=== PATIENT | male | born 1930 | race Caucasian/White ===

== ENCOUNTER 2017-11-12 21:02 | Inpatient (IN) ==
[2017-11-12] MEDS ORDERED: ONDANSETRON 4 MG/2 ML INJECTION IVP ONE (21:40)
[2017-11-12] MEDS ORDERED: FentaNYL 100 MCG/2 ML INJECTION IVP ONE (21:40)
--- NOTE | 2017-11-12 22:07 | Emergency Department Report ---
Nausea/Vomiting/Diarrhea HPI - General Chief complaint: Nausea/Vomiting/Diarrhea Stated complaint: vom, leg pain Time Seen by Provider: 11/12/17 21:20 - History of Present Illness HPI Narrative: 87-year-old male with history of Parkinson's which is rapidly progressing, presents with nausea vomiting diarrhea. Also has right lower leg pain which is quite severe. Rates the pain as 8 out of 10. Has noticed increasing swelling in right leg with worsening pain and increased warmth. Home health nurse told him to stop wearing the compression stockings as they were causing the problem. Plan is to increase Parkinson's medication, but primary care provider is out of town and the order has not been sent through yet. He's had no fever, but has had chills. No dysuria by history. Up until the last week or so, he was walking with a cane especially during the day when he was not overly tired. His symptoms are significant for progress fairly dramatically in the last week or 2. He now requires a walker or assist,. - Related Data Home Medications Medication Instructions Recorded Confirmed Mapap Extra Strength 500 mg tablet 1,000 mg PO TID PRN tab 10/25/16 11/12/17 Triderm (Triamcinolone acetonide 1 applicatio TOP BID PRN 10/25/16 11/12/17 0.1 %) topical cream brinzolamide 1 %-brimonidine 0.2 % 1 drop EACH EYE BID ml 10/25/16 11/12/17 eye drops,suspension cholecalciferol (vitamin D3) 2,000 2,000 unit PO DAILY cap 10/25/16 11/12/17 unit capsule multivitamin tablet 1 tab PO QAM 10/25/16 11/12/17 travoprost (benzalkonium) 0.004 % See Label Instructions OP .COMPLEX 10/25/16 eye drops nitroglycerin 0.2 mg/hr 1 patch TD DAILY 90 Days #90 each 10/16/17 11/12/17 transdermal 24 hour patch Carbidopa/Levodopa [Sinemet Cr 1 tab PO BID 11/12/17 11/12/17 50-200 Tablet] Aspirin 1 tab PO DAILY 11/14/17 11/14/17 Calcium Carbonate 2 tab PO DAILY 11/14/17 11/14/17 Furosemide [Lasix 20 mg Tab] 1 tab PO BID 11/14/17 11/14/17 [place]-3/Dha/Epa/Fish Oil [Fish Oil 2 cap PO BID 11/14/17 11/14/17 1,000 mg Softgel] PEG 3350 17gm PACKET [Miralax] 17 gm PO QAM 11/14/17 11/14/17 Previous Rx's Medication Instructions Recorded Nitrostat (nitroglycerin) 0.4 mg 0.4 mg SL Q5M PRN #7 tab 02/03/17 sublingual tablet Toprol XL metoprolol succinate ER 25 mg PO BID #180 tab 07/09/17 25 mg tablet,extended release 24 hr Crestor (rosuvastatin) 5 mg tablet 5 mg PO EVERY OTHER DAY - HS #45 09/01/17 tab Acetaminophen Supp [Tylenol] 650 mg UT Q5H PRN suppositor 11/21/17 LORazepam [Ativan] 0.5 mg PO Q4H PRN #20 tab 11/21/17 Morphine Sulfate Oral Liq [Roxanol 10 - 20 mg PO Q2H PRN #10 syringe 11/21/17 Oral Liq] Allergies Allergy/AdvReac Type Severity Reaction Status Date / Time No Known Drug Allergies Allergy Unknown Verified 10/22/17 17:17 Review of Systems All systems: reviewed and negative except as stated PFSH Patient Stated Medical History Parkinson's Disease Yes Congestive Heart Failure Yes Hypertension Yes Hx Incontinence Yes Clinic Medical History HTN (hypertension) (Chronic Medical) Hyperlipidemia (Chronic Medical) BPH (benign prostatic hyperplasia) (Chronic Medical) CAD (coronary artery disease) (Chronic Medical) Chronic venous insufficiency (Chronic Medical) Parkinson disease (Chronic Medical) Osteoarthritis of knees, bilateral (Chronic Medical) Tubular adenoma of colon (Acute Medical) 1999 Glaucoma (Chronic Medical) CHF (congestive heart failure) (Chronic Medical) OAB (overactive bladder) (Chronic Medical) Surgical History: Heart cath with stent to RCA 2001. Colonoscopy (normal) 2006. Bilat. cataract removal 05/2009. TURP 03/2010 Family History: Family History Father , at age 84 Parkinsons disease Mother , at age 90 Unknown cause of morbidity or mortality Sister , at age 75 Stroke Brother Heart attack Unknown cause of morbidity or mortality S/P CABG x 3 - Social History Smoking status: Never smoker Alcohol intake: never Alcohol intake frequency: does not drink Household members: spouse, other Current occupational status: retired Physical Exam - Limitations Limitations: physical limitation - General General appearance: alert - Normal Exams: Head:: Normocephalic without trauma Chest/Respirations:: Clear all gasca, with good airflow, and symmetry bilaterally Cardiovascular:: Regular rate and rhythm, without murmur or gallop, Pulses 2+ all extremities, capillary refill, <2 seconds all extremities - Abdominal Exam Abdominal exam: Present: soft, distention, tenderness (diffuse), hyperactive bowel sounds. Absent: guarding, rebound, rigidity Course Vital Signs Temperature 97.5 F 11/12/17 21:15 Pulse Rate 96 11/12/17 21:15 Respiratory Rate 24 11/12/17 21:15 Blood Pressure 140/83 H 11/12/17 21:15 Pulse Oximetry 97 11/12/17 21:15 Temperature 97.5 F 11/12/17 21:15 Pulse Rate 96 11/12/17 21:15 Respiratory Rate 24 11/12/17 21:15 Blood Pressure 140/83 H 11/12/17 21:15 Pulse Oximetry 97 11/12/17 21:15 Nausea/Vomiting/Diarrhea - [facility] Narrative Medical decision making narrative: Peripheral IV with 500 ML normal saline bolus. CBC, CMP, UA, blood culture and urine culture ordered. Concern with right lower leg and probability of cellulitis. White count was not elevated, however patient has obvious cellulitic changes of leg with difficulty moving elevated d-dimer and CT angio chest showed no pulmonary emboli. CT abdomen and pelvis also shows no acute process. Labs are reviewed. Hospitalist is consulted and patient will be admitted with cellulitis/dehydration. Patient certainly has worsening weakness and will need inpatient care. - Differential Diagnosis Likely: gastroenteritis - Medical Records Attestation: I reviewed the patient's medical records. - Lab Data Attestation: I reviewed the patient's lab results. Result diagrams: 11/20/17 04:25 11/20/17 04:25 - Radiology Data Attestation: I reviewed the patient's radiology results. Disposition Clinical Impression: Cellulitis [place] [facility] [place] Condition: Stable Time of Disposition: 16:28 - Seen By: physician
[2017-11-12] MEDS: SALINE FLUSH 10ml SYRINGE IVF PRN (22:18)
[2017-11-12] MEDS ORDERED: IODIXANOL 320mg/ml 100ml INJECTION IV ONE (22:42)
[2017-11-12] MEDS ORDERED: SALINE FLUSH 10ml SYRINGE ONE (22:42)
[2017-11-12] MEDS ORDERED: HYDROMORPHONE 2 MG/ML INJECTION IVP ONE (22:52)
[2017-11-12] MEDS ORDERED: IODIXANOL 320mg/ml 50ml INJECTION IV ONE (23:18)
[2017-11-12] MEDS ORDERED: CEFTRIAXONE (ER USE ONLY) 1 GM in NS 100 ML IV ONE (23:28)
[2017-11-13] MEDS ORDERED: NITROGLYCERIN 0.4 MG SUBLINGUAL TABLET SL PRN (01:07)
[2017-11-13] MEDS ORDERED: FentaNYL 100 MCG/2 ML INJECTION IVP PRN (01:11)
[2017-11-13] MEDS ORDERED: PROCHLORPERAZINE 10 MG/2 ML INJECTION IVP ONE (01:11)
[2017-11-13] MEDS ORDERED: SENNA + DOCUSATE TABLET PO PRN (01:59)
[2017-11-13] MEDS ORDERED: ONDANSETRON 4 MG/2 ML INJECTION IVP PRN (01:59)
[2017-11-13] MEDS ORDERED: VANCOMYCIN - PHARMACY CONSULT MC ONE (01:59)
[2017-11-13] MEDS: NS 1,000 ML IV SCH ×6 (02:00→23:47)
--- NOTE | 2017-11-13 03:11 | History & Physical Report ---
History of Present Illness Date: 11/13/17 Chief complaint: leg pain HPI: The pt is a 87 yo male with rapidly progressive Parkinson's disease whose main caregiver, his has been gone for the past 2-3 weeks due to a broken leg, whose family brought him to the ER due to a painful, red , swollen leg. Over the past 4 week he has had progressive weakness using a walker which has not needed in the past. He did have his big toe nail removed about 4 weeks ago and placed on abx for a week after. Profuse vomiting starting today Review of Systems ROS unobtainable: due to mental status Past Medical History Medical History: Medical History HTN (hypertension) (Chronic) Hyperlipidemia (Chronic) BPH (benign prostatic hyperplasia) (Chronic) CAD (coronary artery disease) (Chronic) Chronic venous insufficiency (Chronic) Parkinson disease (Chronic) Osteoarthritis of knees, bilateral (Chronic) Tubular adenoma of colon (Acute) 1999 Glaucoma (Chronic) CHF (congestive heart failure) (Chronic) OAB (overactive bladder) (Chronic) Surgical History: Heart cath with stent to RCA 2001. Colonoscopy (normal) 2006. Bilat. cataract removal 05/2009. TURP 03/2010 Family History: Family History Father , at age 84 Parkinsons disease Mother , at age 90 Unknown cause of morbidity or mortality Sister , at age 75 Stroke Brother Heart attack Unknown cause of morbidity or mortality S/P CABG x 3 Family History: Unable to Obtain - Social History Smoking status: Never smoker Medications Home Medications Medication Instructions Recorded Confirmed Type Aspirin 325 mg PO DAILY #0 03/12/10 11/12/17 History Calcium Carbonate 2 tab PO DAILY #0 03/12/10 11/12/17 History Fish Oil (omega-3 fatty acids-fish 2 cap PO BID #0 cap 10/25/16 11/12/17 History oil) 300 mg-1,000 mg capsule Mapap Extra Strength 500 mg tablet 1,000 mg PO TID PRN tab 10/25/16 11/12/17 History Triderm (Triamcinolone acetonide 1 applicatio TOP BID PRN 10/25/16 11/12/17 History 0.1 %) topical cream brinzolamide 1 %-brimonidine 0.2 % 1 drop EACH EYE BID ml 10/25/16 11/12/17 History eye drops,suspension cholecalciferol (vitamin D3) 2,000 2,000 unit PO DAILY cap 10/25/16 11/12/17 History unit capsule multivitamin tablet 1 tab PO QAM 10/25/16 11/12/17 History polyethylene glycol 3350 17 17 g PO QAM each 10/25/16 11/12/17 History gram/dose oral powder travoprost (benzalkonium) 0.004 % See Label Instructions OP .COMPLEX 10/25/16 History eye drops Lasix (Furosemide) 20 mg tablet 20 mg PO BID #180 tab 02/03/17 11/12/17 Rx Nitrostat (nitroglycerin) 0.4 mg 0.4 mg SL Q5M PRN #7 tab 02/03/17 11/12/17 Rx sublingual tablet Toprol XL metoprolol succinate ER 25 mg PO BID #180 tab 07/09/17 11/12/17 Rx 25 mg tablet,extended release 24 hr Crestor (rosuvastatin) 5 mg tablet 5 mg PO EVERY OTHER DAY - HS #45 09/01/1703/22 Rx tab nitroglycerin 0.2 mg/hr 1 patch TD DAILY 90 Days #90 each 10/16/17 11/12/17 History transdermal 24 hour patch Carbidopa/Levodopa [Sinemet Cr 1 tab PO BID 11/12/17 11/12/17 History 50-200 Tablet] Allergies Allergy/AdvReac Type Severity Reaction Status Date / Time No Known Drug Allergies Allergy Unknown Verified 10/22/17 17:17 Exam Vital Signs: Temperature 99.6 F 11/13/17 02:15 Pulse Rate 120 H 11/13/17 02:15 Respiratory Rate 28 H 11/13/17 02:15 Blood Pressure 146/71 H 11/13/17 02:15 Pulse Oximetry 92 11/13/17 03:03 Height/Weight/BMI: Height 1.75 m Weight 111.4 kg - Constitutional Present: obtunded Comments: sleeping, nonverbal. - Routine Respiratory Exam Present: CTA bilaterally - Routine Cardiovascular Exam Present: RRR, no murmur - Routine Abdominal Exam Present: soft, normoactive bowel sounds, non distended, non tender - Routine Extremities Exam Present: edema Comments: Right leg with signficant swelling and tenderness to exam, redness ascending up proximal to the knee posteriorly, clear demarkated line, Results - Labs CBC & Chem 7: 11/12/17 22:15 11/12/17 22:15 Assessment and Plan (1) Cellulitis and abscess of foot Current visit: Yes Status: Acute (2) HTN (hypertension) Current visit: No Status: Chronic (3) CAD (coronary artery disease) Current visit: No Status: Chronic (4) Parkinson disease Current visit: No Status: Chronic (5) CHF (congestive heart failure) Current visit: No Status: Chronic Assessment and Plan: will start the pt on vanco, elevation of the leg, CT chest neg for PE, US leg neg for DVT, CT abd due to vomiting negative except for GB stones, high risk for delirium , restart home meds. DVT Prophylaxis: Lovenox GI Prophylaxis: Protonix Resuscitation Status: Do Not Resuscitate - Physician Narrative Narrative: Date: 11/13/17 Time: 0308 Hospital Course Summary Disclaimer: The visit summary below is not to be considered part of the above Progress Note.
[2017-11-13] MEDS ORDERED: ACETAMINOPHEN 650 MG SUPPOSITORY PR PRN (05:38)
--- NOTE | 2017-11-13 07:25 | Ultrasound Report ---
Indication: edema PROCEDURE: US venous doppler LE RT: Encounter: Initial Comparison: None Technique: Color Doppler duplex and grayscale sonographic imaging of the right lower extremity was performed. Findings: There is no evidence for acute deep venous thrombosis in the right thigh. Specifically, serial graded compression was performed from the inguinal ligament to the popliteal bifurcation, on the right thigh, demonstrating appropriate compressibility of the deep venous system. In addition, color and pulsed Doppler demonstrate appropriate spontaneous flow, variation with respiration, and augmentation with calf compression. At the ankle, normal flow is identified in the posterior tibial veins; these vessels are also normal in caliber. Impression: No evidence of acute DVT in the right lower limb. There is a preliminary report by [employer]. .
--- NOTE | 2017-11-13 07:36 | CT Scan Report ---
Indication: n/v PROCEDURE: CT abdomen pelvis w con: Encounter: Initial Comparison: None Technique: Axial CT images were performed through the abdomen and pelvis after the administration of intravenous contrast. Coronal and sagittal two-dimensional reformats. Automated Exposure Control and Iterative Reconstruction dose reducing techniques were utilized. Contrast: Visipaque 320 100 mL Findings: Atelectasis in the lower lobes. Mild motion artifact. Liver is unremarkable. Small gallstones within the mildly distended gallbladder. The spleen, pancreas and adrenal glands are grossly normal. Right kidney is normal. Nonobstructing lower pole left renal stones. No abdominal lymphadenopathy. Bladder is grossly normal. Moderate stool in the rectum. There is herniation of the proximal sigmoid colon partially into a left inguinal hernia without evidence of acute colonic obstruction. Small bowel is normal in caliber. Bone windows show degenerative change and scoliosis in the spine. Enlarged right inguinal lymph nodes measuring up to 1.6 cm in short axis could be reactive. Impression: No acute disease process seen. 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 There is a preliminary report by [employer]. .
--- NOTE | 2017-11-13 07:43 | XRay Report ---
Indication: n/v PROCEDURE: XR abdomen 1V: Encounter: Initial Comparison: CT abdomen and pelvis from the same date Findings: The visualized lung bases are clear. There is no free air on the upright view. The bowel gas pattern is nonobstructive and nonspecific. The pelvis is excluded from the [id number]. Moderate stool in the visualized colon. Degenerative change and scoliosis in the spine. Impression: Nonobstructive nonspecific bowel gas pattern. .
--- NOTE | 2017-11-13 07:45 | XRay Report ---
Indication: N/V PROCEDURE: XR chest 1V: Encounter: Initial Comparison: None FINDINGS: The lungs are clear. There is no abnormal airspace opacity, pleural effusion or pneumothorax identified. The heart size, pulmonary vasculature and mediastinum are within normal limits. IMPRESSION: No acute cardiopulmonary abnormality. .
--- NOTE | 2017-11-13 08:12 | CT Scan Report ---
Indication: elevated d-dimer PROCEDURE: CT angio pulm emboli: Encounter: Initial Comparison: None Technique: Axial CT pulmonary angiographic phase images were performed through the chest after the administration of intravenous contrast. Coronal and Sagittal MIP reconstructed images were created and reviewed. Automated Exposure Control and Iterative Reconstruction dose reducing techniques were utilized. Contrast: Visipaque 320 99 mL Findings: Pulmonary arteries: Contrast bolus is suboptimal and borderline nondiagnostic. No large or central pulmonary embolus. Other findings: No pneumonia, pleural effusion or pneumothorax. Scarring or atelectasis in the left lower lobe. The remaining lung gasca are clear. Central airways are patent. No axillary or mediastinal adenopathy. Heart is mildly enlarged. No pericardial effusion. Impression: Limited exam with no large or central pulmonary embolus. There is a preliminary report by [employer]. .
[2017-11-13] MEDS: ENOXAPARIN 40 MG/0.4 ML INJECTION SQ SCH (08:13)
[2017-11-13] MEDS: HYDROCODONE/APAP 5mg/325mg TABLET PO PRN ×2 (09:43→21:08)
[2017-11-13] MEDS: NITROGLYCERIN 0.2 MG/HR PATCH TD SCH (09:44)
[2017-11-13] MEDS: ASPIRIN 325 MG TABLET PO SCH (09:45)
--- NOTE | 2017-11-13 11:28 | Pharmacy Consult-Antibiotics ---
Pharmacy Consult-Vancomycin - Laboratory Information WBC 2.8 T/MM3 (4.5-11.0) L 11/12/17 22:15 BUN 27.0 MG/DL (9-20) H 11/12/17 22:15 Creatinine 1.4 mg/dL (0.8-1.5) 11/12/17 22:15 - Consult Information Vancomycin consult noted by Dr Echols for Mr Riggs, who is 87 years old and weighs 111kg. He has a cellulitis w/abscess.His serum creatinine is 1.4 mg/dl. He received a vancomycin 1500mg dose this morning at 0230. Will begin vancomycin 1250mg IV q18h this afternoon. Will continue to monitor. Thank you.
[2017-11-13] MEDS ORDERED: PNEUMOCOCCAL 23 VACCINE 0.5ml INJECTION IM ONE (13:55)
--- NOTE | 2017-11-13 16:21 | Wound Care Progress Note ---
Wound Center Progress Note: Pt seen for wound consultation r/t buttocks, bilateral lower legs, and toes. Pt sleeping in bed, FLACC-0. Daughter at bedside. Pt was admitted with a painful red swollen R leg and vomiting. Bilateral lower legs/feet have 2+ to 3+ edema. R leg has increased erythema and warmth/cellulitis. Area of erythema has been marked on leg, at this time area of redness has receded. Bilateral lower legs have small intact serous blisters to anterior aspect, no active weeping, hemosiderin staining. Daughter states her father had his R great toe nail trimmed 1 month ago. The nail proceeded to get infected and had purulent drainage. Pt's PCP placed him on antibiotics for a week. At this time the great toe nail wound is closed, unable to express drainage. Periwound: blanchable erythema. Daughter reports she has just started to apply Vics to toe nails to help with toe nail fungus. 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 Daughter states he has had these wounds for over 1 year. Pt is incontinent at this time. Pt is sitting/sleeping in his recliner most of the time. Wound bed is denuded, scant active bleeding from L medial buttock. Periwound: blanchable erythema. Wound tx plan: To bilateral medial buttocks: Apply barrier cream to denuded areas, cover with Mepilex, change q 3 days and PRN, off load with regular repositioning. To bilateral lower legs: Apply double layer xeroform to blisters , cover with ABD pads. Apply stretch gauze from toes to knees to provide light compression, elevate legs PRN. Change q 3 days. To R great toe: continue to monitor, if opens up apply Aquacel Ag, cover with Mepilex, change q 3 days.
--- NOTE | 2017-11-13 18:34 | History & Physical Report ---
History of Present Illness Date: 11/13/17 Chief complaint: Nause/vomiting, leg pain HPI: Mr Riggs is an 87 y/o male who lives independently presents to [facility] ED secondary to N/V and increasing leg pain. Has been having chronic swelling of legs due to veinous insufficiency-typically wear compression stocking. About 1 month ago had right great toenail trimmed and toenail inadvertently removed. Significant bleeding at that time and has been having redness of toe and leg since. Treated with antibiotics. hospitalized recently. While in visiting her, he lost balance going to bathroom (when to use door jam for assistance as he does at home, but jam in hospital slick and not supportive) did fall with trauma to back. Family notes steady decline at home for the past 1-2 weeks (His normal day would be to get up for breakfast, do devotions, and then sleep in chair until lunch when he would get up for lunch, then going back to sleep in chair) - prior was using a cane for assistance but now is requiring 2 person assistance to get up. finally able to return home on 11/12. Family member has made arrangements for for PT to help patient. Developed n/v (diarrhea reported by ED staff). Also having increasing leg pain, right leg more than left. Both legs very swollen, but right more so and much more painful and warm to touch. ED visit ensued. D-Dimer elevated. WBC decreased at 2.8. No evidence for DVT or PE. HR elevated. With concern for sepsis syndrome due to RLE cellulitis, patient placed in inpatient admission at [facility]. Anticipated length of stay thought to be greater than 2 midnights. Review of Systems All systems PM: 10-point ROS was reviewed, no additional remarkable complaints except - Constitutional Constitutional: Present: chills, fever(s) - Cardiovascular Cardiovascular: Present: edema - Respiratory Respiratory: Absent: cough, hemoptysis, dyspnea on exertion, pain on inspiration , chest congestion - Gastrointestinal Gastrointestinal: Present: nausea, vomiting - Neurological Neurological: Present: abnormal gait, weakness (Generalized) Past Medical History Medical History: Medical History HTN (hypertension) (Chronic) Hyperlipidemia (Chronic) BPH (benign prostatic hyperplasia) (Chronic) CAD (coronary artery disease) (Chronic) Chronic venous insufficiency (Chronic) Parkinson disease (Chronic) Osteoarthritis of knees, bilateral (Chronic) Tubular adenoma of colon (Acute) 2000 Glaucoma (Chronic) CHF (congestive heart failure) (Chronic) OAB (overactive bladder) (Chronic) Surgical History: Heart cath with stent to RCA 2001. Colonoscopy (normal) 2006. Bilat. cataract removal 05/2009. TURP 03/2010 Family History: Family History Father , at age 84 Parkinsons disease Mother , at age 90 Unknown cause of morbidity or mortality Sister , at age 75 Stroke Brother Heart attack Unknown cause of morbidity or mortality S/P CABG x 3 Family History: As Above - Social History Smoking status: Never smoker Alcohol intake frequency: does not drink Housing: house Household members: spouse Current occupational status: retired Social history: Dr Lee PCP Medications Home Medications Medication Instructions Recorded Confirmed Type Aspirin 325 mg PO DAILY #0 03/12/10 11/12/17 History Calcium Carbonate 2 tab PO DAILY #0 03/12/10 11/12/17 History Fish Oil (omega-3 fatty acids-fish 2 cap PO BID #0 cap 10/25/16 11/12/17 History oil) 300 mg-1,000 mg capsule Mapap Extra Strength 500 mg tablet 1,000 mg PO TID PRN tab 10/25/16 11/12/17 History Triderm (Triamcinolone acetonide 1 applicatio TOP BID PRN 10/25/16 11/12/17 History 0.1 %) topical cream brinzolamide 1 %-brimonidine 0.2 % 1 drop EACH EYE BID ml 10/25/16 11/12/17 History eye drops,suspension cholecalciferol (vitamin D3) 2,000 2,000 unit PO DAILY cap 10/25/16 11/12/17 History unit capsule multivitamin tablet 1 tab PO QAM 10/25/16 11/12/17 History polyethylene glycol 3350 17 17 g PO QAM each 10/25/16 11/12/17 History gram/dose oral powder travoprost (benzalkonium) 0.004 % See Label Instructions OP .COMPLEX 10/25/16 History eye drops Lasix (Furosemide) 20 mg tablet 20 mg PO BID #180 tab 02/03/17 11/12/17 Rx Nitrostat (nitroglycerin) 0.4 mg 0.4 mg SL Q5M PRN #7 tab 02/03/17 11/12/17 Rx sublingual tablet Toprol XL metoprolol succinate ER 25 mg PO BID #180 tab 07/09/17 11/12/17 Rx 25 mg tablet,extended release 24 hr Crestor (rosuvastatin) 5 mg tablet 5 mg PO EVERY OTHER DAY - HS #45 09/01/1703/22 Rx tab nitroglycerin 0.2 mg/hr 1 patch TD DAILY 90 Days #90 each 10/16/17 11/12/17 History transdermal 24 hour patch Carbidopa/Levodopa [Sinemet Cr 1 tab PO BID 11/12/17 11/12/17 History 50-200 Tablet] Allergies Allergy/AdvReac Type Severity Reaction Status Date / Time No Known Drug Allergies Allergy Unknown Verified 10/22/17 17:17 Exam Vital Signs: Temperature 97.8 F 11/13/17 16:00 Pulse Rate 86 11/13/17 16:00 Respiratory Rate 20 11/13/17 16:00 Blood Pressure 95/55 11/13/17 16:00 Pulse Oximetry 95 11/13/17 16:00 Height/Weight/BMI: Height 1.75 m Weight 111.3 kg - Constitutional Present: well nourished, well developed, obese, other (Appear tired and weak) - Routine HEENT Exam Head: Present: normocephalic, atraumatic Eye: Present: EOMI ENT: Present: mucous membranes moist - Routine Neck Exam Present: supple, trachea midline - Routine Respiratory Exam Present: decreased breath sounds, wheezes (Scattered ). Absent: respiratory distress - Routine Cardiovascular Exam Present: RRR, no murmur - Routine Abdominal Exam Present: soft, non distended, non tender. Absent: normoactive bowel sounds ( decreaed) - Routine Extremities Exam Present: edema (+4 BLE), pulses intact. Absent: cyanosis, clubbing - Routine Skin Exam Present: erythema (RLE from foot to level of knee), warm (Right LE much more warm than left) - Routine Neurological Exam Present: vision grossly intact, tremors (Parkinsonian). Absent: hearing grossly intact (ALGAACIQ), normal speech (Speech slow) - Routine Psychiatric Exam Present: unable to assess (Appear tire and somnolent.) Results - Labs CBC & Chem 7: 11/13/17 19:20 11/13/17 19:20 Assessment and Plan (1) Sepsis Current visit: Yes Status: Acute (2) Cellulitis and abscess of foot Current visit: Yes Status: Acute (3) Parkinson disease Current visit: No Status: Chronic (4) CHF (congestive heart failure) Current visit: No Status: Chronic (5) CAD (coronary artery disease) Current visit: No Status: Chronic (6) HTN (hypertension) Current visit: No Status: Chronic Assessment and Plan: Assessment Septic shock secondary to cellulitis Manifestations: Tachycardia, Leukopenia, Lactate 4.1 Cellulitis of RLE Leukopenia Nausea and vomiting Functional decline at home Back pain with recent fall Parkinson's disease CAD CHF by history HTN HDL Chronic LE venous insufficiency OA OAB Gallstones Glaucoma Obesity with BMI 36.2 Plan Inpatient admission to [facility] for treatment of Sepsis syndrome secondary to Cellulitis of RLE. Vancomycin initiated per protocol. IVF of NS at 100cc/hr initially - will decrease to 75cc/hr. Lactate obtained and elevated at 4.1. 30mg/kg IVF bolus ordered (3500mg) Zofran prn nausea. Wound consult for evaluation of chronic wounds to legs. Elevate legs as much as able to help decrease edema. PT/OT/Speech consult secondary to Parkinson's and functional decline. Daughter concerned that Parkinson's worsening. Wonders about increasing his medications. Will increase Sinemet to QID and consult Dr Srinivasan for Parkinson's evaluation. Hold on furosemide until sure BP will remain stable - can continue BB and NTG patch. Will need to monitor blood counts due to leukopenia and cellulitis. Monitor BMP secondary to IVF and contrast. Lovenox for DVT prevention. Discussed code status with family - DNR would be preferred. Care to return to Dr Lee at time of discharge from [facility]. DVT Prophylaxis: Lovenox Resuscitation Status: Do Not Resuscitate - Time spent with patient Time with patient PN: 70 minutes - Physician Narrative Physician: José Manuel Fall MD Narrative: Date: 11/13/17 Time: 1818 Sepsis Assessment - Evaluation SIRS Criteria: WBC < 4,000 Septic Shock: Lactate > or equal to 4 mg/dL - Focused Exam-within 6 hours of IVF Bolus Date exam was performed: 11/13/17 Time exam was performed: 22:00 Respiratory exam: Present: decreased breath sounds. Absent: wheezes, crackles Cardiovascular exam: Present: RRR. Absent: murmur Peripheral pulse strength: Normal Peripheral pulse location: Radial Skin Temperature: Warm Skin Color: Normal for Patient Hospital Course Summary Disclaimer: The visit summary below is not to be considered part of the above Progress Note. Hospital Course: 11/13/17 Inpatient admission to [facility] for treatment of Sepsis syndrome secondary to Cellulitis of RLE. Vancomycin initiated per protocol. IVF of NS at 100cc/hr initially - will decrease to 75cc/hr. Lactate obtained and elevated at 4.1. 30mg/kg IVF bolus ordered (3500mg). Zofran prn nausea. Wound consult for evaluation of chronic wounds to legs. Elevate legs as much as able to help decrease edema. PT/OT/Speech consult secondary to Parkinson's and functional decline. Daughter concerned that Parkinson's worsening. Wonders about increasing his medications. Will increase Sinemet to QID and consult Dr Srinivasan for Parkinson's evaluation. Hold on furosemide until sure BP will remain stable - can continue BB and NTG patch. Will need to monitor blood counts due to leukopenia and cellulitis. Monitor BMP secondary to IVF and contrast. Lovenox for DVT prevention. Discussed code status with family - DNR would be preferred. Care to return to Dr Lee at time of discharge from [facility].
[2017-11-13] MEDS: BRINZOLAMIDE 1% EACH EYE SCH (21:09)
[2017-11-13] MEDS: BRIMONIDINE 0.2% EYE DROPS 5ml EACH EYE SCH (21:09)
[2017-11-13] MEDS: EYE EACH EYE SCH (21:09)
[2017-11-13] MEDS: NITROGLYCERIN PATCH REMOVAL TD SCH (21:17)
[2017-11-13] MEDS: CEFTRIAXONE 1 G in NS 100 ML IV SCH (21:37)
--- NOTE | 2017-11-13 22:03 | Sepsis Event Note ---
Sepsis Assessment - Evaluation SIRS Criteria: WBC < 4,000 Septic Shock: Lactate > or equal to 4 mg/dL - Focused Exam-within 6 hours of IVF Bolus Date exam was performed: 11/13/17 Time exam was performed: 22:02 Respiratory exam: Present: decreased breath sounds Cardiovascular exam: Present: RRR, no murmur Capillary Refill: < 2Seconds Peripheral pulse strength: Normal Peripheral pulse location: Radial Skin Temperature: Warm Skin Color: Normal for Patient
[2017-11-14] MEDS: NS 1,000 ML IV SCH (02:22)
[2017-11-14] MEDS: HYDROCODONE/APAP 5mg/325mg TABLET PO PRN (03:35)
--- NOTE | 2017-11-14 08:32 | XRay Report ---
Indication: F/U PROCEDURE: XR chest 1V: Encounter: Initial Comparison: CT chest dated November 12, 2017 Findings: Stable mild interstitial prominence with slight increase in right infrahilar airspace opacity. No pneumothorax or effusion. Heart size and mediastinal contours are stable. Pulmonary vascularity is stable. Impression: Subtle right infrahilar airspace disease may represent atelectasis. .
[2017-11-14] MEDS: ASPIRIN 325 MG TABLET PO SCH (08:47)
[2017-11-14] MEDS: ENOXAPARIN 40 MG/0.4 ML INJECTION SQ SCH (08:48)
[2017-11-14] MEDS: NITROGLYCERIN 0.2 MG/HR PATCH TD SCH (08:48)
[2017-11-14] MEDS: EYE EACH EYE SCH ×2 (08:49→21:00)
[2017-11-14] MEDS: BRIMONIDINE 0.2% EYE DROPS 5ml EACH EYE SCH ×2 (08:49→21:00)
[2017-11-14] MEDS: BRINZOLAMIDE 1% EACH EYE SCH ×2 (08:49→21:00)
[2017-11-14] MEDS: LACTOBACILLUS (15B cfu) CAPSULE PO SCH ×2 (11:14→16:47)
[2017-11-14] MEDS ORDERED: FUROSEMIDE 40 MG/4 ML INJECTION IVP ONE (11:18)
[2017-11-14] MEDS ORDERED: BISACODYL 10 MG SUPPOSITORY RECTALLY PRN (11:56)
[2017-11-14] MEDS ORDERED: POLYETHYL GLYCOL 3350 17gm PACKET PO PRN (11:57)
--- NOTE | 2017-11-14 12:03 | Progress Note ---
- Date 11/14/17 Subjective: F/U: Septic shock secondary to cellulitis, Cellulitis of RLE Some restlessness and agitation overnight night. Breathing shallow, some wheezes. Oral intake very slow but taking small amounts at a time. Did have stool. Pt somnolent, but will awaken and speak short phrases. Daughter at bedside. Objective Vital signs: Temperature 96.6 F L 11/14/17 07:57 Pulse Rate 87 11/14/17 07:57 Respiratory Rate 24 11/14/17 10:03 Blood Pressure 139/71 11/14/17 07:57 Pulse Oximetry 97 11/14/17 07:57 Height/Weight/BMI: Height 1.75 m Weight 115 kg - Constitutional Present: moderate distress, well nourished, well developed, obese, somnolent - Routine HEENT Exam Head: Present: normocephalic, atraumatic Eye: Present: EOMI, PERRL - Routine Respiratory Exam Present: decreased breath sounds (Shallow breathing), wheezes (Faint bilateral) - Routine Cardiovascular Exam Present: RRR, no murmur - Routine Abdominal Exam Present: soft, non tender, distended. Absent: normoactive bowel sounds ( Decreased) - Routine Extremities Exam Present: edema (+4 BLE), pulses intact. Absent: cyanosis, clubbing - Routine Musculoskeletal Exam Musculoskeletal: Present: no clubbing or cyanosis - Routine Skin Exam Present: erythema (Slight decrease to RLE), warm. Absent: dry (Moist) - Routine Neurological Exam Present: altered mental status (Somnolent). Absent: hearing grossly intact ( Hard of Hearing) - Routine Psychiatric Exam Comments: Somnolent Results - Labs CBC & Chem 7: 11/14/17 02:01 11/14/17 02:01 Assessment and Plan (1) Sepsis Current visit: Yes Status: Acute (2) Cellulitis and abscess of foot Current visit: Yes Status: Acute (3) Parkinson disease Current visit: No Status: Chronic (4) CHF (congestive heart failure) Current visit: No Status: Chronic (5) CAD (coronary artery disease) Current visit: No Status: Chronic (6) HTN (hypertension) Current visit: No Status: Chronic Assessment and Plan: Assessment Septic shock secondary to cellulitis Manifestations: Tachycardia, Leukopenia, Lactate 4.1 Cellulitis of RLE Leukopenia Nausea and vomiting Functional decline at home Back pain with recent fall Parkinson's disease CAD CHF by history HTN HDL Chronic LE venous insufficiency OA OAB Gallstones Glaucoma Obesity with BMI 36.2 Plan BP improved with boluses. Creatinine stable. Weight up. CXR without increase edema. Will hold on IVF and give furosemide 40mg x1 - monitor response of HR and BP. ECHO to assess cardiac function. Full liquid diet as able - oral drive decreased. Continue Vanco and Rocephin for skin coverage. Still overall very ill. Monitor lab-recheck CMP, Mg, and CBC in am. Case discussed with patient's daughter. Time spent with patient care 25 minutes. DVT Prophylaxis: Lovenox Resuscitation Status: Do Not Resuscitate - Time spent with patient Time with patient PN: 25 minutes - Physician Narrative Physician: José Manuel Fall MD Narrative: Date: 11/14/17 Time: 1158 Hospital Course Summary Disclaimer: The visit summary below is not to be considered part of the above Progress Note. Hospital Course: 11/13/17 Inpatient admission to [facility] for treatment of Sepsis syndrome secondary to Cellulitis of RLE. Vancomycin initiated per protocol. Rocephin given in ED, will contine. IVF of NS at 100cc/hr initially - will decrease to 75cc/hr. Lactate obtained and elevated at 4.1. 30mg/kg IVF bolus ordered (3500mg). Zofran prn nausea. Wound consult for evaluation of chronic wounds to legs. Elevate legs as much as able to help decrease edema. PT/OT/Speech consult secondary to Parkinson's and functional decline. Daughter concerned that Parkinson's worsening. Wonders about increasing his medications. Will increase Sinemet to QID and consult Dr Srinivasan for Parkinson's evaluation. Hold on furosemide until sure BP will remain stable - can continue BB and NTG patch. Will need to monitor blood counts due to leukopenia and cellulitis. Monitor BMP secondary to IVF and contrast. Lovenox for DVT prevention. Discussed code status with family - DNR would be preferred. Care to return to Dr Lee at time of discharge from [facility]. 11/14/17 BP improved with boluses. Creatinine stable. Weight up. CXR without increase edema. Will hold on IVF and give furosemide 40mg x1 - monitor response of HR and BP. ECHO to assess cardiac function. Full liquid diet as able - oral drive decreased. Continue Vanco and Rocephin for skin coverage. Still overall very ill.
--- NOTE | 2017-11-14 15:32 | Consultation ---
DATE OF CONSULTATION 11/14/[address] Fall PATIENT'S CHIEF COMPLAINT Fatigue and Parkinson's disease. HISTORY OF PRESENT ILLNESS Patient is an 87-year-old male with history of Parkinson's disease for the past 10-15 years. The patient presented to [facility] after a fall. The patient was found to have severe swelling in his legs associated with redness and possible cellulitis problem. He was also found to be very short of breath with wheezing problem. The patient's overall medical condition has been steadily improving with antibiotic and Lasix. He continues to have severe rigidity and bradykinesia associated with his Parkinson's disease. He is also having severe lower back pain and leg stiffness due to swelling and lack of mobility. The patient has been taking Sinemet CR 50/200 mg p.o. b.i.d. for his Parkinson's. This has worked for him for many years. His dosage was increased this morning to three times a day. The benefit has not been determined yet. PHYSICAL EXAMINATION On physical examination, the patient was awake, alert, oriented to self and situation. He is very frail and fatigued. He has had difficulty keeping his eyes open. The pupils are round, reactive and equal. Extraocular muscles were limited in all directions. Speech was very slow and soft. He had no facial weakness or numbness. His motor examination in the upper extremities was 4/5 limited mainly by fatigue and rigidity. In the lower extremities it was 3 to 4- /5. Sensory examination was limited for light touch and pinprick in the lower extremities from the knees down. This is exacerbated by the swelling of the legs and the infection problem. Deep tendon reflexes were 2-/4. Coordination for [id number] were slow bilaterally. The patient has increased cogwheeling rigidity in the upper extremities. ASSESSMENT 1. Progressing Parkinson's disease exacerbated by the recent worsening of his medical condition due to leg cellulitis, pulmonary edema and possible sepsis. PLAN 1. Continue Sinemet CR 50/200 mg p.o. t.i.d. for Parkinson's disease. 2. Optimize treatment for cellulitis, leg edema and pulmonary problem. 3. Provide physical therapy with passive motion exercises to help mobility when patient is more stable medically. 4. Consider assessing lower back problems if the patient becomes more stable and he is able to stand on his legs. [facility]
--- NOTE | 2017-11-14 15:53 | Echocardiogram ---
DATE OF PROCEDURE November 14, 2017 REFERRING PHYSICIAN José Manuel Fall MD This is a two-dimensional echo with spectral Doppler, color-flow and M-mode. It was obtained in a patient with congestive heart failure. Left atrial dimension is normal. Left ventricle end-diastolic dimension is normal. Left ventricle wall thickness is at the upper limits of normal. LV systolic function is normal with ejection fraction of about 55%. Right atrium is normal. Right ventricle is normal. Aortic root dimension is normal. Mitral valve is morphologically normal with trace of mitral regurgitation. Aortic valve is a trileaflet structure with no stenosis. Mild aortic insufficiency is present. Tricuspid valve shows mild tricuspid regurgitation with normal estimated pulmonary artery systolic pressure of 26. Pulmonary valve shows no pulmonary insufficiency. There is no pericardial effusion. IMPRESSION 1. Normal LV systolic function with ejection fraction of 55%. 2. Trace of mitral regurgitation. 3. Mild aortic insufficiency. 4. Mild tricuspid regurgitation with normal estimated pulmonary artery systolic pressure of 26. MTDD
[2017-11-14] MEDS ORDERED: FUROSEMIDE 20 MG/2 ML INJECTION IVP ONE (18:44)
[2017-11-14] MEDS: CEFTRIAXONE 1 G in NS 100 ML IV SCH (19:06)
[2017-11-14] MEDS: NITROGLYCERIN PATCH REMOVAL TD SCH (21:02)
--- NOTE | 2017-11-15 08:24 | Pharmacy Consult-Antibiotics ---
Pharmacy Consult-Vancomycin - Laboratory Information WBC 10.6 T/MM3 (4.5-11.0) 11/15/17 01:49 BUN 23.0 MG/DL (9-20) H 11/15/17 04:23 Creatinine 0.9 mg/dL (0.8-1.5) 11/15/17 04:23 Procalcitonin 16.70 NG/ML H* 11/15/17 04:23 Vancomycin Trough 17.10 ug/mL (15-20) 11/15/17 01:49 - Consult Information VANCOMYCIN CONSULT: Dx: CELLULITIS Current Renal Fx: SCr = 0.9 mg/dl. Vancomycin 1250 mg IV q18hrs Vanco trough = 17.10 Will continue with Vancomycin 1250 mg IV q18hrs. Will continue to monitor and adjust regimen to maintain therapeutic levels. Thank you. Erendira English, PharmD
[2017-11-15] MEDS: ASPIRIN 325 MG TABLET PO SCH (09:56)
[2017-11-15] MEDS: ENOXAPARIN 40 MG/0.4 ML INJECTION SQ SCH (09:57)
[2017-11-15] MEDS: NITROGLYCERIN 0.2 MG/HR PATCH TD SCH (09:57)
[2017-11-15] MEDS: LACTOBACILLUS (15B cfu) CAPSULE PO SCH ×3 (09:58→17:59)
[2017-11-15] MEDS: BRINZOLAMIDE 1% EACH EYE SCH ×2 (09:58→21:01)
[2017-11-15] MEDS: EYE EACH EYE SCH ×2 (09:58→21:01)
[2017-11-15] MEDS: BRIMONIDINE 0.2% EYE DROPS 5ml EACH EYE SCH ×2 (09:58→21:01)
--- NOTE | 2017-11-15 16:56 | Progress Note ---
- Date 11/15/17 Subjective: Mr Riggs is seen today in follow up. Weeping throughout entire examination, he will briefly open his eyes, however, does not participate in conversation. Patients at daughter, Stephany, is at the bedside who provides all of the information and history. She feels that today. His spirits are overall decreased as he is angry and has "given up". Overall, his mentation and confusion has improved however daughter notes over the last 24 hours he has been blaming his children for keeping him in the hospital. He is currently on 1 liter of oxygen by nasal cannula. He is noted when attempting to take oral pills that he does have dysphagia with coughing. Continued lower extremity edema with erythema to the right leg from the groin all the way down to his toes. Noted weight is up. Objective Vital signs: Temperature 98.7 F 11/15/17 15:27 Pulse Rate 80 11/15/17 15:27 Respiratory Rate 16 11/15/17 15:27 Blood Pressure 142/76 H 11/15/17 15:27 Pulse Oximetry 94 11/15/17 15:27 Height/Weight/BMI: Height 1.75 m Weight 113.4 kg - Constitutional Present: mild distress, well nourished, well developed - Routine HEENT Exam Eye: Present: EOMI ENT: Present: mucous membranes moist, dentition normal - Routine Respiratory Exam Present: wheezes, diminished air movement - Routine Cardiovascular Exam Present: RRR, S1, S2. Absent: murmur - Routine Abdominal Exam Present: soft, normoactive bowel sounds, non distended. Absent: tenderness - Routine Extremities Exam Present: edema Comments: RLE erythema with 3+ edema - Routine Skin Exam Present: intact, dry, warm - Routine Neurological Exam Present: altered mental status - Routine Lymphatic Exam Lymphatic: Absent: adenopathy - Routine Psychiatric Exam Present: cooperative Results - Labs CBC & Chem 7: 11/15/17 01:49 11/15/17 04:23 Microbiology Results: Microbiology 11/14/17 11:16 Sputum, Expectorated Gram Stain - Final 11/14/17 11:16 Sputum, Expectorated Sputum Culture - Preliminary Early growth Assessment and Plan Assessment and Plan: Assessment Septic shock secondary to cellulitis Manifestations: Tachycardia, Leukopenia, Lactate 4.1 Cellulitis of RLE Leukopenia Nausea and vomiting Functional decline at home Back pain with recent fall Parkinson's disease CAD CHF by history HTN HDL Chronic LE venous insufficiency OA OAB Gallstones Glaucoma Obesity with BMI 36.2 Plan Weight continues to increase as well as edema. Will start Lasix 20 mg IV now and continue BID Monitor electrolytes and renal function carefully Continue Vanco and Rocephin for skin coverage. Sepsis markers and bandemia continue to improve Electrolytes and renal function good Weaned down to 1 liter of oxygen Encourage work with Speech- concern for dysphagia Daughter verbalized anxiety and concern for discharge plan as she was his caregiver at home She is interested if IRU -vs- SNU once medically stable Case discussed with patient's daughter. Time spent with patient care at bedside 35 minutes. 11/15/2017-8:15 PM-I examined the patient independently. I reviewed this chart, the patient history, and the [employer]'s/PA's documented findings as above. We discussed and formulated the assessment and plan as above with the additions below.-Dr. Mosley The patient was seen this evening in his room accompanied by his , daughter , son and a couple of other family members. The patient continues to have some encephalopathy. His appetite is poor today. His family thinks he is not swallowing as well today as yesterday. He is not able to answer many of my questions today. Family states he just wants to leave the hospital. His daughter states that the erythema in his right leg is much better. She states the edema is much better in the left leg especially and mildly better in the right leg. On exam he is drowsy but arousable. He answers a few questions but then does not respond to other questions. Chest is clear to auscultation. Cardiovascular reveals a regular rate and rhythm. Abdomen is soft, moderately distended, with positive bowel sounds. states his abdomen has been distended at home, but she is not sure if it's been distended this much. Bilateral upper extremities are without edema. Left lower extremity reveals +1 edema with some blisters on the anterior shins which have ruptured and are covered in a dressing. Right lower extremity reveals 2-3+ edema. He has erythema from the upper medial thigh and extending down into the entire calf and foot. He has some blisters on the right medial foot which are new. He has some ruptured blisters on the anterior hoffmann which are covered in a dressing. The area of erythema does not extend beyond the marked areas of erythema. His daughter states that the erythema is much customs compliance analyst pink than it was before. On review of lab, white count is 10.6 with 14% bands, down from 46% bands yesterday. White count yesterday was 8.5. He's been afebrile for 2 days now. Pro -calcitonin is 16.7. No previous pro-calcitonin. Impression and plan Septic Shock secondary to cellulitis-resolved Cellulitis right lower extremity-continue vancomycin and Rocephin currently day 4. Recheck pro-calcitonin tomorrow. Check CPK tomorrow. Check CBC with differential tomorrow. Regarding by lower extremity edema-agree with Lasix 20 mg IV twice a day, may need to increase dosage. Monitor renal function and electrolytes. Continue Sinemet for Parkinson's disease. Dose was increased. Check KUB regarding abdominal distention Check chest x-ray regarding hypoxia, hypoxia is improving Re: Encephalopathy-we'll continue to try to improve his cellulitis and pain control Family would like to consider IRU. Will place an IRU screen on Friday. Continue PT and OT - Physician Narrative Narrative: Date: 11/15/17 Time: 1652 Hospital Course Summary Disclaimer: The visit summary below is not to be considered part of the above Progress Note. Hospital Course: 11/13/17 Inpatient admission to [facility] [place] for treatment of Sepsis syndrome secondary to Cellulitis of RLE. Vancomycin initiated per protocol. Rocephin given in ED, will contine. IVF of NS at 100cc/hr initially - will decrease to 75cc/hr. Lactate obtained and elevated at 4.1. 30mg/kg IVF bolus ordered (3500mg). Zofran prn nausea. Wound consult for evaluation of chronic wounds to legs. Elevate legs as much as able to help decrease edema. PT/OT/Speech consult secondary to Parkinson's and functional decline. Daughter concerned that Parkinson's worsening. Wonders about increasing his medications. Will increase Sinemet to QID and consult Dr Srinivasan for Parkinson's evaluation. Hold on furosemide until sure BP will remain stable - can continue BB and NTG patch. Will need to monitor blood counts due to leukopenia and cellulitis. Monitor BMP secondary to IVF and contrast. Lovenox for DVT prevention. Discussed code status with family - DNR would be preferred. Care to return to Dr Lee at time of discharge from [facility]. 11/14/17 BP improved with boluses. Creatinine stable. Weight up. CXR without increase edema. Will hold on IVF and give furosemide 40mg x1 - monitor response of HR and BP. ECHO to assess cardiac function. Full liquid diet as able - oral drive decreased. Continue Vanco and Rocephin for skin coverage. Still overall very ill. 11/15/17 Weight continues to increase as well as edema. Will start Lasix 20 mg IV now and continue BID Monitor electrolytes and renal function carefully Continue Vanco and Rocephin for skin coverage. Sepsis markers and bandemia continue to improve Electrolytes and renal function good Weaned down to 1 liter of oxygen Encourage work with Speech- concern for dysphagia Daughter verbalized anxiety and concern for discharge plan as she was his caregiver at home She is interested if IRU -vs- SNU once medically stable Case discussed with patient's daughter. Time spent with patient care at bedside 35 minutes.
[2017-11-15] MEDS ORDERED: FUROSEMIDE 20 MG/2 ML INJECTION IVP ONE (17:04)
[2017-11-15] MEDS: SALINE FLUSH 10ml SYRINGE IVF PRN ×3 (17:43→23:53)
[2017-11-15] MEDS: CEFTRIAXONE 1 G in NS 100 ML IV SCH (21:00)
[2017-11-15] MEDS: NITROGLYCERIN PATCH REMOVAL TD SCH (22:55)
[2017-11-15] MEDS ORDERED: FALL RISK - PHARMACY CONSULT MC ONE (23:36)
[2017-11-16] MEDS: ACETAMINOPHEN 325 MG TABLET PO PRN (03:35)
[2017-11-16] MEDS ORDERED: FUROSEMIDE 20 MG/2 ML INJECTION IVP SCH (09:00)
[2017-11-16] MEDS: NITROGLYCERIN 0.2 MG/HR PATCH TD SCH (09:01)
[2017-11-16] MEDS: LACTOBACILLUS (15B cfu) CAPSULE PO SCH ×3 (09:01→17:55)
[2017-11-16] MEDS: ASPIRIN 325 MG TABLET PO SCH (09:01)
[2017-11-16] MEDS: EYE EACH EYE SCH ×2 (09:02→20:39)
[2017-11-16] MEDS: ENOXAPARIN 40 MG/0.4 ML INJECTION SQ SCH (09:02)
[2017-11-16] MEDS: BRINZOLAMIDE 1% EACH EYE SCH ×2 (09:02→20:39)
[2017-11-16] MEDS: BRIMONIDINE 0.2% EYE DROPS 5ml EACH EYE SCH ×2 (09:02→20:39)
[2017-11-16] MEDS: FUROSEMIDE 40 MG/4 ML INJECTION IVP SCH ×2 (09:05→17:54)
--- NOTE | 2017-11-16 10:25 | XRay Report ---
Indication: abdominal distention and poor appetite PROCEDURE: XR KUB: Encounter: Initial Comparison: November 12, 2017 Findings: The visualized lung bases are clear. There is no free air on the upright view. The bowel gas pattern is nonobstructive. Gas is seen in nondilated small and large bowel to the level of the rectum. Moderate stool is seen throughout the colon. Impression: No evidence of acute obstruction. Diffuse gas throughout small and large bowel may represent ileus. .
--- NOTE | 2017-11-16 10:25 | XRay Report ---
Indication: hypoxia PROCEDURE: XR chest 1V: Encounter: Initial Comparison: November 14, 2017 Findings: Lungs are stable in appearance. No new or worsening airspace disease. No pneumothorax or effusion. Heart size and mediastinal contours are stable. Pulmonary vascularity is unchanged. Impression: No change. .
--- NOTE | 2017-11-16 13:27 | Progress Note ---
- Date 11/16/17 Subjective: The patient was seen this morning accompanied by his daughter, son, daughter-in- law and niece. He has been pretty drowsy today and yesterday, but his daughter states that is very common for him to sleep frequently during the day. He states his legs feel a little better today. He states he wants to eat and he wants to drink regular liquids. He denies any abdominal pain. He denies shortness of breath. His nurse thought he was not swallowing very well yesterday. The speech therapist did come to see him today and recommended thin water and therapeutic feeds with medications if alert. They will reevaluate tomorrow. Objective Vital signs: Temperature 96.4 F L 11/16/17 07:53 Pulse Rate 80 11/16/17 07:53 Respiratory Rate 16 11/16/17 07:53 Blood Pressure 151/76 H 11/16/17 07:53 Pulse Oximetry 96 11/16/17 07:53 Height/Weight/BMI: Height 1.75 m Weight 112.4 kg Comments: Afebrile, O2 sat 96% on 1 L, heart rate 80, blood pressure 151/76 Weight today is 112.4 kg down 1 kg from yesterday. GEN-drowsy but arousable, hard of hearing, no acute distress HEENT-oropharynx is moist NECK-supple CV-regular rate and rhythm CHEST-coarse breath sounds bilaterally ABD-soft, moderately distended, nontender, positive bowel sounds -Gardner in place with normal-appearing urine EXT-significant bilateral edema with blister formation right greater than left, cellulitis of the right leg is slowly improving with decreased erythema NEURO-significant for decreased level of consciousness today Results - Labs CBC & Chem 7: 11/16/17 04:32 11/16/17 04:32 Labs: Phosphorus is 2.1, albumin 3.0, calcium 8.8 C-reactive protein is 178 Pro-calcitonin is 9.19 down from 16.7 Bands today are 14 down from 46 Microbiology Results: Microbiology 11/14/17 11:16 Sputum, Expectorated Gram Stain - Final 11/14/17 11:16 Sputum, Expectorated Sputum Culture - Final Normal Oral Gloria - Impressions KUB today shows no evidence of acute obstruction. Diffuse gas throughout small and large bowel may represent ileus Chest x-ray today shows no change. Previous chest x-ray showed right infrahilar airspace disease likely atelectasis I have viewed the films and agree. Assessment and Plan (1) HTN (hypertension) Current visit: No Status: Chronic (2) CAD (coronary artery disease) Current visit: No Status: Chronic (3) Parkinson disease Current visit: No Status: Chronic (4) CHF (congestive heart failure) Current visit: No Status: Chronic (5) Cellulitis and abscess of foot Current visit: Yes Status: Acute (6) Sepsis Current visit: Yes Status: Acute Assessment and Plan: Assessment Septic shock secondary to cellulitis Manifestations: Tachycardia, Leukopenia, Lactate 4.1 Cellulitis of RLE Leukopenia-resolved Severe chronic lower extremity edema with blister formation Chronic LE venous insufficiency Functional decline at home Back pain with recent fall Parkinson's disease CAD CHF by history HTN Gallstones Obesity with BMI 36.2 Abdominal distention-? Chronic-possible mild ileus Dysphagia Encephalopathy Acute hypoxic respiratory failure-improving Plan White count is stable. Bands are decreased. C-reactive protein is high at 178 without previous level to compare. Pro-calcitonin is down to 9 from 16.7. Lasix 20 mg IV twice a day was started yesterday or severe lower extremity edema. Weight is down 1 kg but urine output yesterday was not remarkable. Will increase Lasix to 40 mg IV twice a day. Start potassium 20 mEq by mouth 3 times a day. Give IV potassium phosphate for hypophosphatemia. Regarding dysphagia, speech therapist did recommend thickened water and therapeutic feeding with meds for today. Continue Rocephin and vancomycin for cellulitis, currently day 5 Give Dulcolax suppositories for gaseous distention of small and large bowel. Doubt significant ileus at this time since he has good bowel sounds and did have a bowel movement this morning. IRU screen tomorrow Discussed care plan with the patient's children. His son his DPOA. The patient has a DO NOT RESUSCITATE and a living will. We discussed possibility of Dobbhoff feeding tube if oral intake is not improving. They are uncertain if he would actually want this. Hopefully, the patient's swallow will improve over time. Continue with increased dose of Sinemet for Parkinson's. The CBC with differential, and renal panel tomorrow DVT Prophylaxis: Lovenox Resuscitation Status: Do Not Resuscitate - Physician Narrative Narrative: Date: 11/16/17 Time: 1322 Hospital Course Summary Disclaimer: The visit summary below is not to be considered part of the above Progress Note. Hospital Course: 11/13/17 Inpatient admission to [facility] [place] for treatment of Sepsis syndrome secondary to Cellulitis of RLE. Vancomycin initiated per protocol. Rocephin given in ED, will contine. IVF of NS at 100cc/hr initially - will decrease to 75cc/hr. Lactate obtained and elevated at 4.1. 30mg/kg IVF bolus ordered (3500mg). Zofran prn nausea. Wound consult for evaluation of chronic wounds to legs. Elevate legs as much as able to help decrease edema. PT/OT/Speech consult secondary to Parkinson's and functional decline. Daughter concerned that Parkinson's worsening. Wonders about increasing his medications. Will increase Sinemet to QID and consult Dr Srinivasan for Parkinson's evaluation. Hold on furosemide until sure BP will remain stable - can continue BB and NTG patch. Will need to monitor blood counts due to leukopenia and cellulitis. Monitor BMP secondary to IVF and contrast. Lovenox for DVT prevention. Discussed code status with family - DNR would be preferred. Care to return to Dr Lee at time of discharge from [facility] [place]. 11/14/17 BP improved with boluses. Creatinine stable. Weight up. CXR without increase edema. Will hold on IVF and give furosemide 40mg x1 - monitor response of HR and BP. ECHO to assess cardiac function. Full liquid diet as able - oral drive decreased. Continue Vanco and Rocephin for skin coverage. Still overall very ill. 11/15/17 Weight continues to increase as well as edema. Will start Lasix 20 mg IV now and continue BID Monitor electrolytes and renal function carefully Continue Vanco and Rocephin for skin coverage. Sepsis markers and bandemia continue to improve Electrolytes and renal function good Weaned down to 1 liter of oxygen Encourage work with Speech- concern for dysphagia Daughter verbalized anxiety and concern for discharge plan as she was his caregiver at home She is interested if IRU -vs- SNU once medically stable Case discussed with patient's daughter. Time spent with patient care at bedside 35 minutes. 11/16/2017 White count is stable. Bands are decreased. C-reactive protein is high at 178 without previous level to compare. Pro-calcitonin is down to 9 from 16.7. Lasix 20 mg IV twice a day was started yesterday or severe lower extremity edema. Weight is down 1 kg but urine output yesterday was not remarkable. Will increase Lasix to 40 mg IV twice a day. Start potassium 20 mEq by mouth 3 times a day. Give IV potassium phosphate for hypophosphatemia. Regarding dysphagia, speech therapist did recommend thickened water and therapeutic feeding with meds for today. Continue Rocephin and vancomycin for cellulitis, currently day 5 Give Dulcolax suppositories for gaseous distention of small and large bowel. Doubt significant ileus at this time since he has good bowel sounds and did have a bowel movement this morning. IRU screen tomorrow Discussed care plan with the patient's children. His son his DPOA. The patient has a DO NOT RESUSCITATE and a living will. We discussed possibility of Dobbhoff feeding tube if oral intake is not improving. They are uncertain if he would actually want this. Hopefully, the patient's swallow will improve over time. Continue with increased dose of Sinemet for Parkinson's.
[2017-11-16] MEDS ORDERED: POTASSIUM PHOSPHATE IV SCH (15:00)
[2017-11-16] MEDS ORDERED: NS IV SCH (15:00)
[2017-11-16] MEDS: BISACODYL 10 MG SUPPOSITORY RECTALLY SCH (15:41)
[2017-11-16] MEDS: NITROGLYCERIN PATCH REMOVAL TD SCH (20:40)
[2017-11-17] MEDS: CEFTRIAXONE 1 G in NS 100 ML IV SCH ×2 (00:01→20:32)
[2017-11-17] MEDS: FUROSEMIDE 40 MG/4 ML INJECTION IVP SCH ×2 (08:49→17:44)
[2017-11-17] MEDS: ENOXAPARIN 40 MG/0.4 ML INJECTION SQ SCH (08:49)
[2017-11-17] MEDS: ASPIRIN 325 MG TABLET PO SCH (08:50)
[2017-11-17] MEDS: BISACODYL 10 MG SUPPOSITORY RECTALLY SCH (08:50)
[2017-11-17] MEDS: LACTOBACILLUS (15B cfu) CAPSULE PO SCH ×3 (08:50→17:44)
[2017-11-17] MEDS: BRIMONIDINE 0.2% EYE DROPS 5ml EACH EYE SCH ×2 (08:53→20:35)
[2017-11-17] MEDS: EYE EACH EYE SCH ×2 (08:53→20:35)
[2017-11-17] MEDS: BRINZOLAMIDE 1% EACH EYE SCH ×2 (08:53→20:35)
[2017-11-17] MEDS: NITROGLYCERIN 0.2 MG/HR PATCH TD SCH (08:55)
[2017-11-17 10:45] VITALS: BMI 36.2
--- NOTE | 2017-11-17 13:13 | Wound Care Progress Note ---
Wound Center Progress Note: Pt seen for wound follow up r/t bilateral lower legs/buttock/R great toe. Daughter at bedside. FLACC-0. R lower leg: areas of erythema marked, leg is slightly warmer than L leg, 3+ pitting edema, multiple scattered intact serous blisters on anterior lower leg, intact serous blister to R medial ankle. Dressings intact, with no strike thru drainage, yellow foam boot in place. L lower leg: +1 edema, multiple scattered intact serous blisters on anterior lower leg. Dressings intact with no strike thru drainage. Yellow foam boot in place. R great toe: skin intact, dried crusted sanguineous drainage, no active drainage at this time. Bilateral medial buttocks: not visualized at this time. According to Laurie MENDEZ, dressings have been changed per order. Discussed with daughter wound cares role if pt were to go on comfort/palliative care.
--- NOTE | 2017-11-17 14:35 | Pharmacy Consult-Antibiotics ---
Pharmacy Consult-Vancomycin - Laboratory Information WBC 6.2 T/MM3 (4.5-11.0) D 11/17/17 07:51 BUN 23.0 MG/DL (9-20) H 11/17/17 07:51 Creatinine 0.9 mg/dL (0.8-1.5) 11/17/17 07:51 Procalcitonin 9.19 NG/ML H* 11/16/17 04:32 Vancomycin Trough 12.19 ug/mL (15-20) L 11/17/17 07:51 - Consult Information VANCOMYCIN CONSULT: Day 5 CW is an 87 y/o male who lives independently presents to [facility] secondary to N/V and increasing leg pain. Has been having chronic swelling of legs due to veinous insufficiency-typically wear compression stocking. About 1 month ago had right great toenail trimmed and toenail inadvertently removed. Significant bleeding at that time and has been having redness of toe and leg since. Treated with antibiotics. The patient was assessed with Sepsis and Cellulitis. I am changing the Vancomycin to 1,500 mg IV q18hrs starting 11/18 @ 0200. The pharmacy will continue to monitor and make adjustments accordingly. Thank you, Luis Nayak, Pharmacist.
--- NOTE | 2017-11-17 14:48 | Progress Note ---
- Date 11/17/17 Subjective: Mr Riggs is seen this afternoon in follow-up with daughter and son at the bedside. Overall, he appears comfortable, continues on 1 liter of oxygen by nasal cannula. Daughter states he is more alert today in conversations. At time of examination. He denies having pain or feeling short of breath. Daughter states she is encouraged as lower extremity edema at [place] to be improving. He was able to sit up on the side of the bed with therapy today. Speech therapy recommends thin liquids with. Diet. Bowels are moving regularly Objective Vital signs: Temperature 97.3 F 11/17/17 08:00 Pulse Rate 74 11/17/17 08:00 Respiratory Rate 24 11/17/17 08:00 Blood Pressure 157/86 H 11/17/17 08:00 Pulse Oximetry 95 11/17/17 08:00 Height/Weight/BMI: Height 1.75 m Weight 111.3 kg Body Mass Index 36.2 - Constitutional Present: no acute distress, well nourished, well developed - Routine HEENT Exam Eye: Present: EOMI ENT: Present: mucous membranes moist, dentition normal - Routine Respiratory Exam Present: diminished air movement. Absent: wheezes - Routine Cardiovascular Exam Present: RRR, S1, S2. Absent: murmur - Routine Abdominal Exam Present: soft, normoactive bowel sounds, non distended. Absent: tenderness - Routine Extremities Exam Present: edema (RLE 2-3+) - Routine Back/Spine/Pelvis Exam Back/Spine: Present: full ROM - Routine Skin Exam Present: dry, warm - Routine Neurological Exam Present: alert, oriented X3, CN II-XII intact - Routine Lymphatic Exam Lymphatic: Absent: adenopathy - Routine Psychiatric Exam Present: normal affect Results - Labs CBC & Chem 7: 11/17/17 07:51 11/17/17 07:51 Microbiology Results: Microbiology 11/14/17 11:16 Sputum, Expectorated Gram Stain - Final 11/14/17 11:16 Sputum, Expectorated Sputum Culture - Final Normal Oral Gloria Assessment and Plan (1) HTN (hypertension) Current visit: No Status: Chronic (2) CAD (coronary artery disease) Current visit: No Status: Chronic (3) Parkinson disease Current visit: No Status: Chronic (4) CHF (congestive heart failure) Current visit: No Status: Chronic (5) Cellulitis and abscess of foot Current visit: Yes Status: Acute (6) Sepsis Current visit: Yes Status: Acute Assessment and Plan: Assessment Septic shock secondary to cellulitis Manifestations: Tachycardia, Leukopenia, Lactate 4.1 Cellulitis of RLE Leukopenia-resolved Severe chronic lower extremity edema with blister formation Chronic LE venous insufficiency Functional decline at home Back pain with recent fall Parkinson's disease CAD CHF by history HTN Gallstones Obesity with BMI 36.2 Abdominal distention-? Chronic-possible mild ileus Dysphagia Encephalopathy Acute hypoxic respiratory failure-improving Plan Increased Lasix yesterday to 40mg IVP BID. Potassium scheduled to 20 Meq TID. Give additional 40 meq today. K 3.1 Overall RLE erythema and edema does appear improved Speech therapist did recommend all portions of pudding consistency pured and thin liquids using Straw Continue Rocephin and vancomycin for cellulitis, currently day 6 Continue to encourage sitting up on edge of bed daily 30 minutes spent at bedside talking with patient, daughter and son. Discussed questions about extermination inspector plans- Chronic dysphagia tx, SNU-vs- IRU, etc Recheck CBC and BMP tomorrow morning 11/17/2017-7 PM-I examined the patient independently. I reviewed this chart, the patient history, and the FILLER AND TRIMMER's/PA's documented findings as above. We discussed and formulated the assessment and plan as above with the additions below.-Dr. Mosley The patient was seen this evening in his room accompanied by his daughter and niece. His daughter stated that this morning he was saying he wanted to leave the hospital and he didn't understand why he was here since he was 87 years old and this was so expensive. He didn't think he was coming get better. He does reiterate this to some extent to me today. However he seems somewhat confused and when I talked with him about options of comfort care/hospice versus staying in the hospital and continuing treatment, he stated he was uncertain what he wanted to do at this time. I told him he did not have to make a decision at this point. His biggest complaint at this time is that he wants to drink water. He states he has not been getting water, although his daughter states she gave him water every 30 minutes last night and frequently during the day today. On exam he is drowsy but arousable. He talks with his eyes closed. Chest is clear to auscultation anteriorly. Cardiovascular reveals a regular rate and rhythm. Abdomen is soft, mildly distended, with positive bowel sounds. Lower extremity edema is slightly improved. The erythema in his right leg is slowly improving. Lab today revealed white count down to 6.2 and bands down to 1. Potassium was down to 3.1 today. Urine output is good. Impression and plan Cellulitis of the right lower extremity-continue Rocephin and vancomycin Generalized edema-continue diuretics Hypokalemia-continue potassium replacement and recheck basic metabolic profile this evening and in the morning. Magnesium was normal We can discuss further with the patient and his family tomorrow regarding wishes for continued care. - Physician Narrative Narrative: Date: 11/17/17 Time: 1435 Hospital Course Summary Disclaimer: The visit summary below is not to be considered part of the above Progress Note. Hospital Course: 11/13/17 Inpatient admission to [facility] for treatment of Sepsis syndrome secondary to Cellulitis of RLE. Vancomycin initiated per protocol. Rocephin given in ED, will contine. IVF of NS at 100cc/hr initially - will decrease to 75cc/hr. Lactate obtained and elevated at 4.1. 30mg/kg IVF bolus ordered (3500mg). Zofran prn nausea. Wound consult for evaluation of chronic wounds to legs. Elevate legs as much as able to help decrease edema. PT/OT/Speech consult secondary to Parkinson's and functional decline. Daughter concerned that Parkinson's worsening. Wonders about increasing his medications. Will increase Sinemet to QID and consult Dr Srinivasan for Parkinson's evaluation. Hold on furosemide until sure BP will remain stable - can continue BB and NTG patch. Will need to monitor blood counts due to leukopenia and cellulitis. Monitor BMP secondary to IVF and contrast. Lovenox for DVT prevention. Discussed code status with family - DNR would be preferred. Care to return to Dr Lee at time of discharge from [facility]. 11/14/17 BP improved with boluses. Creatinine stable. Weight up. CXR without increase edema. Will hold on IVF and give furosemide 40mg x1 - monitor response of HR and BP. ECHO to assess cardiac function. Full liquid diet as able - oral drive decreased. Continue Vanco and Rocephin for skin coverage. Still overall very ill. 11/15/17 Weight continues to increase as well as edema. Will start Lasix 20 mg IV now and continue BID Monitor electrolytes and renal function carefully Continue Vanco and Rocephin for skin coverage. Sepsis markers and bandemia continue to improve Electrolytes and renal function good Weaned down to 1 liter of oxygen Encourage work with Speech- concern for dysphagia Daughter verbalized anxiety and concern for discharge plan as she was his caregiver at home She is interested if IRU -vs- SNU once medically stable Case discussed with patient's daughter. Time spent with patient care at bedside 35 minutes. 11/16/2017 White count is stable. Bands are decreased. C-reactive protein is high at 178 without previous level to compare. Pro-calcitonin is down to 9 from 16.7. Lasix 20 mg IV twice a day was started yesterday or severe lower extremity edema. Weight is down 1 kg but urine output yesterday was not remarkable. Will increase Lasix to 40 mg IV twice a day. Start potassium 20 mEq by mouth 3 times a day. Give IV potassium phosphate for hypophosphatemia. Regarding dysphagia, speech therapist did recommend thickened water and therapeutic feeding with meds for today. Continue Rocephin and vancomycin for cellulitis, currently day 5 Give Dulcolax suppositories for gaseous distention of small and large bowel. Doubt significant ileus at this time since he has good bowel sounds and did have a bowel movement this morning. IRU screen tomorrow Discussed care plan with the patient's children. His son his DPOA. The patient has a DO NOT RESUSCITATE and a living will. We discussed possibility of Dobbhoff feeding tube if oral intake is not improving. They are uncertain if he would actually want this. Hopefully, the patient's swallow will improve over time. Continue with increased dose of Sinemet for Parkinson's. 11/17/17 Increased Lasix yesterday to 40mg IVP BID. Potassium scheduled to 20 Meq TID. Give additional 40 meq today. K 3.1 Overall RLE erythema and edema does appear improved Speech therapist did recommend all portions of pudding consistency pured and thin liquids using Straw Continue Rocephin and vancomycin for cellulitis, currently day 6 Continue to encourage sitting up on edge of bed daily 30 minutes spent at bedside talking with patient, daughter and son. Discussed questions about intermediate plans- Chronic dysphagia tx, SNU-vs- IRU, etc Recheck CBC and BMP tomorrow morning
[2017-11-17] MEDS: NITROGLYCERIN PATCH REMOVAL TD SCH (20:36)
[2017-11-18] MEDS: FUROSEMIDE 40 MG/4 ML INJECTION IVP SCH ×3 (09:28→21:21)
[2017-11-18] MEDS: ENOXAPARIN 40 MG/0.4 ML INJECTION SQ SCH (09:28)
[2017-11-18] MEDS: LACTOBACILLUS (15B cfu) CAPSULE PO SCH ×4 (09:29→22:38)
[2017-11-18] MEDS: ASPIRIN 325 MG TABLET PO SCH (09:29)
[2017-11-18] MEDS: BISACODYL 10 MG SUPPOSITORY RECTALLY SCH (09:29)
[2017-11-18] MEDS: BRINZOLAMIDE 1% EACH EYE SCH ×2 (09:30→21:19)
[2017-11-18] MEDS: EYE EACH EYE SCH ×2 (09:30→21:19)
[2017-11-18] MEDS: BRIMONIDINE 0.2% EYE DROPS 5ml EACH EYE SCH ×2 (09:30→21:20)
[2017-11-18] MEDS: SALINE FLUSH 10ml SYRINGE IVF PRN ×2 (09:30→16:34)
[2017-11-18] MEDS: NITROGLYCERIN 0.2 MG/HR PATCH TD SCH (09:31)
--- NOTE | 2017-11-18 13:07 | Progress Note ---
- Date 11/18/17 Subjective: Viraj is seen today in follow up. He is up in the chair today dozing off during exam. He is currently on room air without distress. He is following commands with nursing at the bedside, taking pills crushed in bites of putting. No family is presently at the bed. Overall lower extremity erythema appears to be improved. Weight remains stable. Objective Vital signs: Temperature 98.6 F 11/18/17 00:00 Pulse Rate 85 11/18/17 08:00 Respiratory Rate 24 11/18/17 08:00 Blood Pressure 163/70 H 11/18/17 08:00 Pulse Oximetry 92 11/18/17 08:00 Height/Weight/BMI: Height 1.75 m Weight 111 kg Body Mass Index 36.2 - Constitutional Present: no acute distress, well nourished, well developed - Routine HEENT Exam Eye: Present: EOMI ENT: Present: mucous membranes moist, dentition normal - Routine Respiratory Exam Present: diminished air movement. Absent: wheezes - Routine Cardiovascular Exam Present: RRR, S1, S2. Absent: murmur - Routine Abdominal Exam Present: soft, normoactive bowel sounds, non distended. Absent: tenderness - Routine Extremities Exam Present: edema (RLE>LLE) - Routine Skin Exam Present: intact, dry, warm - Routine Neurological Exam Present: alert, CN II-XII intact - Routine Lymphatic Exam Lymphatic: Absent: adenopathy - Routine Psychiatric Exam Present: cooperative Results - Labs CBC & Chem 7: 11/18/17 04:21 11/18/17 04:21 Microbiology Results: Microbiology 11/14/17 11:16 Sputum, Expectorated Gram Stain - Final 11/14/17 11:16 Sputum, Expectorated Sputum Culture - Final Normal Oral Gloria Assessment and Plan (1) HTN (hypertension) Current visit: No Status: Chronic (2) CAD (coronary artery disease) Current visit: No Status: Chronic (3) Parkinson disease Current visit: No Status: Chronic (4) CHF (congestive heart failure) Current visit: No Status: Chronic (5) Cellulitis and abscess of foot Current visit: Yes Status: Acute (6) Sepsis Current visit: Yes Status: Acute Assessment and Plan: Assessment Septic shock secondary to cellulitis Manifestations: Tachycardia, Leukopenia, Lactate 4.1 Cellulitis of RLE Leukopenia-resolved Severe chronic lower extremity edema with blister formation Chronic LE venous insufficiency Functional decline at home Back pain with recent fall Parkinson's disease CAD CHF by history HTN Gallstones Obesity with BMI 36.2 Abdominal distention-? Chronic-possible mild ileus Dysphagia Encephalopathy Acute hypoxic respiratory failure-improving Plan Continue with Lasix 40mg IVP BID for ongoing diuresing. Potassium supplementation 20 MEQ TID Potassium scheduled to 20 Meq TID. Give additional 40 meq today. K 3.1 Overall RLE erythema and edema does appear improved Continue Rocephin and vancomycin for cellulitis, currently day 7 Follow routine labs. Need to continue to discuss packing machine feeder plan of care with patient and family. 11/18/2017-4:16 PM-I examined the patient independently. I reviewed this chart, the patient history, and the SPORTS ANALYST's/PA's documented findings as above. We discussed and formulated the assessment and plan as above with the additions below.-Dr. Mosley The patient was seen this afternoon in his room. He was sleeping comfortably on my arrival. He woke up and stated that he hurt all over but then would not answer any other questions until back to sleep. His daughter states he ate better at breakfast and lunch today. She states he frequently asks for water. He is urinating well. He had a diarrheal stool yesterday, none recorded yet today. His daughter states he coughed up some phlegm and was able to spit it in a cup. On exam he is drowsy but in no acute distress. Chest is clear to auscultation. Cardiovascular reveals a regular rate and rhythm. Abdomen is soft and nontender. He has +1 edema of all extremities except for the right lower extremity where he has 3+ edema. He has bullae on his foot, some of which are now draining serous fluid. The erythema in his leg is receding. White count is normal at 6.8. Neutrophils are 65%. Hemoglobin is 12.7. Basic metabolic profile is essentially normal. Weight is stable at 111 kg albumin is 3.3. Impression and plan Cellulitis is slowly improving Re: Fluid overload and peripheral edema, will increase Lasix to 4 times a day and recheck basic metabolic profile tomorrow. I did discuss options with the patient's daughter outside of his room. I discussed that we could continue with current treatment and then when he is stable, transferred to [facility]. I discussed that at any point if he decided he wanted to stop treatment, we could consider comfort care and hospice and he could have that consultation here in the hospital or at the [place] [facility]. I also discussed with her that if she, her family, and her father would like to talk with the hospice nurse about what they have to offer, we could consult hospice at any time. She states that she will think about this and talk with her brother who his DPOA. I did also discuss with her that with her father' s lethargy and multiple medical issues, his likelihood of returning to his level of functioning that he had 2 months ago is not very likely.She did state understanding of this and was in agreement. - Physician Narrative Narrative: Date: 11/18/17 Time: 1304 Hospital Course Summary Disclaimer: The visit summary below is not to be considered part of the above Progress Note. Hospital Course: 11/13/17 Inpatient admission to [facility] for treatment of Sepsis syndrome secondary to Cellulitis of RLE. Vancomycin initiated per protocol. Rocephin given in ED, will contine. IVF of NS at 100cc/hr initially - will decrease to 75cc/hr. Lactate obtained and elevated at 4.1. 30mg/kg IVF bolus ordered (3500mg). Zofran prn nausea. Wound consult for evaluation of chronic wounds to legs. Elevate legs as much as able to help decrease edema. PT/OT/Speech consult secondary to Parkinson's and functional decline. Daughter concerned that Parkinson's worsening. Wonders about increasing his medications. Will increase Sinemet to QID and consult Dr Srinivasan for Parkinson's evaluation. Hold on furosemide until sure BP will remain stable - can continue BB and NTG patch. Will need to monitor blood counts due to leukopenia and cellulitis. Monitor BMP secondary to IVF and contrast. Lovenox for DVT prevention. Discussed code status with family - DNR would be preferred. Care to return to Dr Lee at time of discharge from [facility]. 11/14/17 BP improved with boluses. Creatinine stable. Weight up. CXR without increase edema. Will hold on IVF and give furosemide 40mg x1 - monitor response of HR and BP. ECHO to assess cardiac function. Full liquid diet as able - oral drive decreased. Continue Vanco and Rocephin for skin coverage. Still overall very ill. 11/15/17 Weight continues to increase as well as edema. Will start Lasix 20 mg IV now and continue BID Monitor electrolytes and renal function carefully Continue Vanco and Rocephin for skin coverage. Sepsis markers and bandemia continue to improve Electrolytes and renal function good Weaned down to 1 liter of oxygen Encourage work with Speech- concern for dysphagia Daughter verbalized anxiety and concern for discharge plan as she was his caregiver at home She is interested if IRU -vs- SNU once medically stable Case discussed with patient's daughter. Time spent with patient care at bedside 35 minutes. 11/16/2017 White count is stable. Bands are decreased. C-reactive protein is high at 178 without previous level to compare. Pro-calcitonin is down to 9 from 16.7. Lasix 20 mg IV twice a day was started yesterday or severe lower extremity edema. Weight is down 1 kg but urine output yesterday was not remarkable. Will increase Lasix to 40 mg IV twice a day. Start potassium 20 mEq by mouth 3 times a day. Give IV potassium phosphate for hypophosphatemia. Regarding dysphagia, speech therapist did recommend thickened water and therapeutic feeding with meds for today. Continue Rocephin and vancomycin for cellulitis, currently day 5 Give Dulcolax suppositories for gaseous distention of small and large bowel. Doubt significant ileus at this time since he has good bowel sounds and did have a bowel movement this morning. IRU screen tomorrow Discussed care plan with the patient's children. His son his DPOA. The patient has a DO NOT RESUSCITATE and a living will. We discussed possibility of Dobbhoff feeding tube if oral intake is not improving. They are uncertain if he would actually want this. Hopefully, the patient's swallow will improve over time. Continue with increased dose of Sinemet for Parkinson's. 11/17/17 Increased Lasix yesterday to 40mg IVP BID. Potassium scheduled to 20 Meq TID. Give additional 40 meq today. K 3.1 Overall RLE erythema and edema does appear improved Speech therapist did recommend all portions of pudding consistency pured and thin liquids using Straw Continue Rocephin and vancomycin for cellulitis, currently day 6 Continue to encourage sitting up on edge of bed daily 30 minutes spent at bedside talking with patient, daughter and son. Discussed questions about packing machine feeder plans- Chronic dysphagia tx, SNU-vs- IRU, etc Recheck CBC and BMP tomorrow morning
[2017-11-18] MEDS: ACETAMINOPHEN 325 MG TABLET PO PRN (16:34)
[2017-11-18] MEDS: CEFTRIAXONE 1 G in NS 100 ML IV SCH (20:17)
[2017-11-18] MEDS: NITROGLYCERIN PATCH REMOVAL TD SCH (21:21)
[2017-11-19] MEDS: ACETAMINOPHEN 325 MG TABLET PO PRN ×2 (01:36→09:11)
[2017-11-19] MEDS: FUROSEMIDE 40 MG/4 ML INJECTION IVP SCH ×4 (02:47→21:12)
[2017-11-19] MEDS: ENOXAPARIN 40 MG/0.4 ML INJECTION SQ SCH (09:09)
[2017-11-19] MEDS: ASPIRIN 325 MG TABLET PO SCH (09:10)
[2017-11-19] MEDS: LACTOBACILLUS (15B cfu) CAPSULE PO SCH ×3 (09:10→17:04)
[2017-11-19] MEDS: NITROGLYCERIN 0.2 MG/HR PATCH TD SCH (09:10)
[2017-11-19] MEDS: BISACODYL 10 MG SUPPOSITORY RECTALLY SCH (09:10)
[2017-11-19] MEDS: SALINE FLUSH 10ml SYRINGE IVF PRN ×2 (09:10→14:53)
[2017-11-19] MEDS: BRINZOLAMIDE 1% EACH EYE SCH ×2 (09:11→21:14)
[2017-11-19] MEDS: BRIMONIDINE 0.2% EYE DROPS 5ml EACH EYE SCH ×2 (09:11→21:15)
[2017-11-19] MEDS: EYE EACH EYE SCH ×2 (09:11→21:14)
[2017-11-19] MEDS: HYDROCODONE/APAP 5mg/325mg TABLET PO PRN (11:22)
--- NOTE | 2017-11-19 15:46 | Progress Note ---
- Date 11/19/17 Subjective: Mr Riggs is seen today in follow up this afternoon up in the chair. He is more alert today and makes good eye contact. When asked how he is feeling he states "okay". He is down to room air and is breathing comfortably without evidence of distress.Right lower ext edema and erythema continues to improve. Weight is down to 108 kilograms and daughter does state that his edema looks better than she seen in a very long time. Daughter is at his bedside and discusses about plans moving forward at discharge. Objective Vital signs: Temperature 99.5 F 11/19/17 08:00 Pulse Rate 95 11/19/17 08:00 Respiratory Rate 18 11/19/17 12:53 Blood Pressure 137/79 11/19/17 08:00 Pulse Oximetry 94 11/19/17 08:00 Height/Weight/BMI: Height 1.75 m Weight 108.8 kg Body Mass Index 36.2 - Constitutional Present: no acute distress, well nourished, well developed - Routine HEENT Exam Eye: Present: EOMI ENT: Present: mucous membranes moist, dentition normal - Routine Respiratory Exam Present: CTA bilaterally. Absent: wheezes - Routine Cardiovascular Exam Present: RRR. Absent: murmur - Routine Abdominal Exam Present: soft, normoactive bowel sounds, non distended. Absent: tenderness - Routine Extremities Exam Present: edema (RLE>LLE) - Routine Skin Exam Present: dry, warm - Routine Neurological Exam Present: alert, oriented X3, CN II-XII intact - Routine Lymphatic Exam Lymphatic: Absent: adenopathy - Routine Psychiatric Exam Present: normal affect Results - Labs CBC & Chem 7: 11/19/17 04:37 11/19/17 04:37 Microbiology Results: Microbiology 11/14/17 11:16 Sputum, Expectorated Gram Stain - Final 11/14/17 11:16 Sputum, Expectorated Sputum Culture - Final Normal Oral Gloria Assessment and Plan (1) HTN (hypertension) Current visit: No Status: Chronic (2) CAD (coronary artery disease) Current visit: No Status: Chronic (3) Parkinson disease Current visit: No Status: Chronic (4) CHF (congestive heart failure) Current visit: No Status: Chronic (5) Cellulitis and abscess of foot Current visit: Yes Status: Acute (6) Sepsis Current visit: Yes Status: Acute Assessment and Plan: Assessment Septic shock secondary to cellulitis Manifestations: Tachycardia, Leukopenia, Lactate 4.1 Cellulitis of RLE Leukopenia-resolved Severe chronic lower extremity edema with blister formation Chronic LE venous insufficiency Functional decline at home Back pain with recent fall Parkinson's disease CAD CHF by history HTN Gallstones Obesity with BMI 36.2 Abdominal distention-? Chronic-possible mild ileus Dysphagia Encephalopathy Acute hypoxic respiratory failure-improving Plan Continue with Lasix at increased dose of 4 times a day. Given increased diuresis. Potassium was slightly down today, however, is being supplemented appropriately. Overall edema and weight appear to be improved. Patient has been able to wean down off oxygen. Continue Rocephin and vancomycin for cellulitis, currently day 8 Continue to follow daily labs In depth discussion with daughter at the bedside regarding discharge plan. She is planning for placement in a nursing facility. However, is also planning to meet with hospice to discuss potential options for care. Case discussed with attending, Dr Mosley 11/19/2017-7:30 PM-I examined the patient independently. I reviewed this chart, the patient history, and the MOBILITY MANAGER's/PA's documented findings as above. We discussed and formulated the assessment and plan as above with the additions below.-Dr. Mosley The patient was seen this evening in his room accompanied by his daughter. He is more alert than I have seen him before. His eyes were open most of the visit. He denied having any pain. He didn't answer any of my other questions. He has not been eating well per his daughter, but has been drinking. On exam he is more alert. He appears chronically ill. Chest is clear to auscultation. Cardiovascular reveals a regular rate and rhythm. Abdomen is soft , obese, nontender with positive bowel sounds. Extremities reveal 2-3+ lower extremity edema, however it is improving. Erythema from the cellulitis in his right lower extremity is improving. Impression and plan Chronic lower extremity edema-improving with diuresis Cellulitis right lower extremity-improving on antibiotics Functional decline at home which has worsened here in the hospital with this acute illness Encephalopathy The patient and family will be meeting with hospice tomorrow. They're considering longterm placement. Discussed with the patient, his daughter, his son, and his . - Physician Narrative Narrative: Date: 11/19/17 Time: 1541 Hospital Course Summary Disclaimer: The visit summary below is not to be considered part of the above Progress Note. Hospital Course: 11/13/17 Inpatient admission to [facility] [place] for treatment of Sepsis syndrome secondary to Cellulitis of RLE. Vancomycin initiated per protocol. Rocephin given in ED, will contine. IVF of NS at 100cc/hr initially - will decrease to 75cc/hr. Lactate obtained and elevated at 4.1. 30mg/kg IVF bolus ordered (3500mg). Zofran prn nausea. Wound consult for evaluation of chronic wounds to legs. Elevate legs as much as able to help decrease edema. PT/OT/Speech consult secondary to Parkinson's and functional decline. Daughter concerned that Parkinson's worsening. Wonders about increasing his medications. Will increase Sinemet to QID and consult Dr Srinivasan for Parkinson's evaluation. Hold on furosemide until sure BP will remain stable - can continue BB and NTG patch. Will need to monitor blood counts due to leukopenia and cellulitis. Monitor BMP secondary to IVF and contrast. Lovenox for DVT prevention. Discussed code status with family - DNR would be preferred. Care to return to Dr Lee at time of discharge from [facility] [place]. 11/14/17 BP improved with boluses. Creatinine stable. Weight up. CXR without increase edema. Will hold on IVF and give furosemide 40mg x1 - monitor response of HR and BP. ECHO to assess cardiac function. Full liquid diet as able - oral drive decreased. Continue Vanco and Rocephin for skin coverage. Still overall very ill. 11/15/17 Weight continues to increase as well as edema. Will start Lasix 20 mg IV now and continue BID Monitor electrolytes and renal function carefully Continue Vanco and Rocephin for skin coverage. Sepsis markers and bandemia continue to improve Electrolytes and renal function good Weaned down to 1 liter of oxygen Encourage work with Speech- concern for dysphagia Daughter verbalized anxiety and concern for discharge plan as she was his caregiver at home She is interested if IRU -vs- SNU once medically stable Case discussed with patient's daughter. Time spent with patient care at bedside 35 minutes. 11/16/2017 White count is stable. Bands are decreased. C-reactive protein is high at 178 without previous level to compare. Pro-calcitonin is down to 9 from 16.7. Lasix 20 mg IV twice a day was started yesterday or severe lower extremity edema. Weight is down 1 kg but urine output yesterday was not remarkable. Will increase Lasix to 40 mg IV twice a day. Start potassium 20 mEq by mouth 3 times a day. Give IV potassium phosphate for hypophosphatemia. Regarding dysphagia, speech therapist did recommend thickened water and therapeutic feeding with meds for today. Continue Rocephin and vancomycin for cellulitis, currently day 5 Give Dulcolax suppositories for gaseous distention of small and large bowel. Doubt significant ileus at this time since he has good bowel sounds and did have a bowel movement this morning. IRU screen tomorrow Discussed care plan with the patient's children. His son his DPOA. The patient has a DO NOT RESUSCITATE and a living will. We discussed possibility of Dobbhoff feeding tube if oral intake is not improving. They are uncertain if he would actually want this. Hopefully, the patient's swallow will improve over time. Continue with increased dose of Sinemet for Parkinson's. 11/17/17 Increased Lasix yesterday to 40mg IVP BID. Potassium scheduled to 20 Meq TID. Give additional 40 meq today. K 3.1 Overall RLE erythema and edema does appear improved Speech therapist did recommend all portions of pudding consistency pured and thin liquids using Straw Continue Rocephin and vancomycin for cellulitis, currently day 6 Continue to encourage sitting up on edge of bed daily 30 minutes spent at bedside talking with patient, daughter and son. Discussed questions about [facility] plans- Chronic dysphagia tx, SNU-vs- IRU, etc Recheck CBC and BMP tomorrow morning 11/19/17 Continue with Lasix at increased dose of 4 times a day. Given increased diuresis. Potassium was slightly down today, however, is being supplemented appropriately. Overall edema and weight appear to be improved. Patient has been able to wean down off oxygen. Continue Rocephin and vancomycin for cellulitis, currently day 8 Continue to follow daily labs In depth discussion with daughter at the bedside regarding discharge plan. She is planning for placement in a nursing facility. However, is also planning to meet with hospice to discuss potential options for care. Case discussed with attending, Dr Mosley
[2017-11-19] MEDS ORDERED: NS FLUSH BAG 500ml IV PRN (20:00)
[2017-11-19] MEDS: CEFTRIAXONE 1 G in NS 100 ML IV SCH (21:09)
[2017-11-19] MEDS: NITROGLYCERIN PATCH REMOVAL TD SCH (21:15)
[2017-11-20] MEDS: FUROSEMIDE 40 MG/4 ML INJECTION IVP SCH ×4 (05:39→22:56)
[2017-11-20] MEDS: SALINE FLUSH 10ml SYRINGE IVF PRN ×2 (05:40→08:10)
[2017-11-20] MEDS: LACTOBACILLUS (15B cfu) CAPSULE PO SCH ×3 (10:34→17:59)
[2017-11-20] MEDS: EYE EACH EYE SCH ×2 (10:35→22:42)
[2017-11-20] MEDS: BRINZOLAMIDE 1% EACH EYE SCH ×2 (10:35→22:42)
[2017-11-20] MEDS: BRIMONIDINE 0.2% EYE DROPS 5ml EACH EYE SCH ×2 (10:36→22:42)
[2017-11-20] MEDS: NITROGLYCERIN 0.2 MG/HR PATCH TD SCH (10:36)
[2017-11-20] MEDS: BISACODYL 10 MG SUPPOSITORY RECTALLY SCH (10:46)
[2017-11-20] MEDS: ASPIRIN 325 MG TABLET PO SCH (10:46)
[2017-11-20] MEDS: ENOXAPARIN 40 MG/0.4 ML INJECTION SQ SCH (10:46)
--- NOTE | 2017-11-20 16:13 | Progress Note ---
- Date 11/20/17 Subjective: Mr Riggs is seen multiple times throughout the day. Unfortunately, he is having a cognitive decline today. He has been aggressive toward staff and refusing therapy. Multiple discussions with his power of bridge welder, daughter at the bedside regarding treatment plan, discharge plan. Daughter did meet with 2 different hospice companies today to discuss hospice options. Medically clearance is doing well as he is no longer requiring oxygen. His lower extremity edema has greatly improved and weight has trended down. He is intermittently taking in oral food. However, today has been refusing during times of agitation. Objective Vital signs: Temperature 98.2 F 11/20/17 08:00 Pulse Rate 72 11/20/17 08:00 Respiratory Rate 24 11/20/17 08:00 Blood Pressure 123/74 11/20/17 08:00 Pulse Oximetry 93 11/20/17 08:00 Height/Weight/BMI: Height 1.75 m Weight 105.7 kg Body Mass Index 36.2 - Constitutional Present: no acute distress, well nourished, well developed - Routine HEENT Exam Eye: Present: EOMI ENT: Present: mucous membranes moist, dentition normal - Routine Respiratory Exam Present: diminished air movement. Absent: wheezes - Routine Cardiovascular Exam Present: RRR, S1, S2. Absent: murmur - Routine Abdominal Exam Present: soft, normoactive bowel sounds, non distended. Absent: tenderness - Routine Extremities Exam Present: edema (RLE>LLE) - Routine Skin Exam Present: dry, warm - Routine Neurological Exam Present: alert, oriented X3, CN II-XII intact - Routine Lymphatic Exam Lymphatic: Absent: adenopathy - Routine Psychiatric Exam Present: normal affect Results - Labs CBC & Chem 7: 11/20/17 04:25 11/20/17 04:25 Microbiology Results: Microbiology 11/14/17 11:16 Sputum, Expectorated Gram Stain - Final 11/14/17 11:16 Sputum, Expectorated Sputum Culture - Final Normal Oral Gloria Assessment and Plan Assessment and Plan: Assessment Septic shock secondary to cellulitis Manifestations: Tachycardia, Leukopenia, Lactate 4.1 Cellulitis of RLE Leukopenia-resolved Severe chronic lower extremity edema with blister formation Chronic LE venous insufficiency Functional decline at home Back pain with recent fall Parkinson's disease CAD CHF by history HTN Gallstones Obesity with BMI 36.2 Abdominal distention-? Chronic-possible mild ileus Dysphagia Encephalopathy Acute hypoxic respiratory failure-improving Plan Encephalopathy/aggitation continues to worsen despite improvement in sepsis. Patient has made it clear multiple times to family that he does not want to live this way and just wants to "go". Did review hospital course with daughter, patient has received 8 days of IV antibiotics and diuretics. Overall, medically, his symptoms have improved. Unfortunately, now he is having increased agitation and is refusing therapy. Continue with Lasix at increased dose of 4 times a day for ongoing diuresing. However, this probably can be decreased in the near future Discussed with case management. Patient is excepted to go to [facility] [place] and can be transferred there tomorrow if this is decided. He would like to discuss SNU versus hospice. At this time given his worsening encephalopathy with agitation and refusing therapy. He would unlikely be able to successfully do skilled rehabilitation. Patient also has made it very clear verbally in the past few days that he does not wish to live like this. We would recommend hospice and comfort care. - Time spent with patient Time with patient PN: other (40 minutes) - Physician Narrative Physician: other (Antonio Samaniego MD) Narrative: Date: 11/20/17 Time: 1604 I have independently interviewed and examined patient. Patient chart reviewed. Case discussed with my CANE SPLICER. Care plan developed with my supervision, agree with above. Patient continued to have episodes of agitation, aggressive behavior noted through the day by family and nursing staff. Patient did try to swing at nurse earlier today. Started on IV Ativan 1 mg every 4 hours as needed for agitation or aggressive behavior. Discussed in detail with patient's daughter at bedside about discharge to assisted under hospice versus under skilled for physical therapy. Unfortunately, at this point patient has significant mental status changes with worsening dementia from Parkinson's disease and unable to participate in physical therapy today because of mental status changes. Patient' s family consider discharge to assisted with hospice tomorrow. Physical exam: Patient appears anxious, agitated, NAD PERRLA, EOMI S1 and S2 heard on auscultation, no murmurs Lungs clear to auscultation bilaterally, no wheezing, no crackles Impression - sepsis from cellulitis, chronic bilateral lower extremity venous stasis changes, Parkinson's disease with advancing dementia, dementia with behavioral changes and agitation, dysphagia, history of CAD, CHF, hypertension Plan - advancing dementia associated with Parkinson's disease with behavioral changes, agitation, questionable hallucinations. Discussed options about hospice with the patient's family with worsening cognitive decline. Tentative plan for patient to be discharged tomorrow to assisted with hospice care. All questions asked by patient's daughter at bedside and answered to her satisfaction. Hospital Course Summary Disclaimer: The visit summary below is not to be considered part of the above Progress Note. Hospital Course: 11/13/17 Inpatient admission to [facility] [place] for treatment of Sepsis syndrome secondary to Cellulitis of RLE. Vancomycin initiated per protocol. Rocephin given in ED, will contine. IVF of NS at 100cc/hr initially - will decrease to 75cc/hr. Lactate obtained and elevated at 4.1. 30mg/kg IVF bolus ordered (3500mg). Zofran prn nausea. Wound consult for evaluation of chronic wounds to legs. Elevate legs as much as able to help decrease edema. PT/OT/Speech consult secondary to Parkinson's and functional decline. Daughter concerned that Parkinson's worsening. Wonders about increasing his medications. Will increase Sinemet to QID and consult Dr Srinivasan for Parkinson's evaluation. Hold on furosemide until sure BP will remain stable - can continue BB and NTG patch. Will need to monitor blood counts due to leukopenia and cellulitis. Monitor BMP secondary to IVF and contrast. Lovenox for DVT prevention. Discussed code status with family - DNR would be preferred. Care to return to Dr Lee at time of discharge from [facility] [place]. 11/14/17 BP improved with boluses. Creatinine stable. Weight up. CXR without increase edema. Will hold on IVF and give furosemide 40mg x1 - monitor response of HR and BP. ECHO to assess cardiac function. Full liquid diet as able - oral drive decreased. Continue Vanco and Rocephin for skin coverage. Still overall very ill. 11/15/17 Weight continues to increase as well as edema. Will start Lasix 20 mg IV now and continue BID Monitor electrolytes and renal function carefully Continue Vanco and Rocephin for skin coverage. Sepsis markers and bandemia continue to improve Electrolytes and renal function good Weaned down to 1 liter of oxygen Encourage work with Speech- concern for dysphagia Daughter verbalized anxiety and concern for discharge plan as she was his caregiver at home She is interested if IRU -vs- SNU once medically stable Case discussed with patient's daughter. Time spent with patient care at bedside 35 minutes. 11/16/2017 White count is stable. Bands are decreased. C-reactive protein is high at 178 without previous level to compare. Pro-calcitonin is down to 9 from 16.7. Lasix 20 mg IV twice a day was started yesterday or severe lower extremity edema. Weight is down 1 kg but urine output yesterday was not remarkable. Will increase Lasix to 40 mg IV twice a day. Start potassium 20 mEq by mouth 3 times a day. Give IV potassium phosphate for hypophosphatemia. Regarding dysphagia, speech therapist did recommend thickened water and therapeutic feeding with meds for today. Continue Rocephin and vancomycin for cellulitis, currently day 5 Give Dulcolax suppositories for gaseous distention of small and large bowel. Doubt significant ileus at this time since he has good bowel sounds and did have a bowel movement this morning. IRU screen tomorrow Discussed care plan with the patient's children. His son his DPOA. The patient has a DO NOT RESUSCITATE and a living will. We discussed possibility of Dobbhoff feeding tube if oral intake is not improving. They are uncertain if he would actually want this. Hopefully, the patient's swallow will improve over time. Continue with increased dose of Sinemet for Parkinson's. 11/17/17 Increased Lasix yesterday to 40mg IVP BID. Potassium scheduled to 20 Meq TID. Give additional 40 meq today. K 3.1 Overall RLE erythema and edema does appear improved Speech therapist did recommend all portions of pudding consistency pured and thin liquids using Straw Continue Rocephin and vancomycin for cellulitis, currently day 6 Continue to encourage sitting up on edge of bed daily 30 minutes spent at bedside talking with patient, daughter and son. Discussed questions about [facility] plans- Chronic dysphagia tx, SNU-vs- IRU, etc Recheck CBC and BMP tomorrow morning 11/19/17 Continue with Lasix at increased dose of 4 times a day. Given increased diuresis. Potassium was slightly down today, however, is being supplemented appropriately. Overall edema and weight appear to be improved. Patient has been able to wean down off oxygen. Continue Rocephin and vancomycin for cellulitis, currently day 8 Continue to follow daily labs In depth discussion with daughter at the bedside regarding discharge plan. She is planning for placement in a nursing facility. However, is also planning to meet with hospice to discuss potential options for care. Case discussed with attending, Dr Mosley 11/20/17 Encephalopathy/aggitation continues to worsen despite improvement in sepsis. Patient has made it clear multiple times to family that he does not want to live this way and just wants to "go". Did review hospital course with daughter, patient has received 8 days of IV antibiotics and diuretics. Overall, medically, his symptoms have improved. Unfortunately, now he is having increased agitation and is refusing therapy. Continue with Lasix at increased dose of 4 times a day for ongoing diuresing. However, this probably can be decreased in the near future Discussed with case management. Patient is excepted to go to [facility] [place] and can be transferred there tomorrow if this is decided. He would like to discuss SNU versus hospice. At this time given his worsening encephalopathy with agitation and refusing therapy. He would unlikely be able to successfully do skilled rehabilitation. Patient also has made it very clear verbally in the past few days that he does not wish to live like this. We would recommend hospice and comfort care.
[2017-11-20] MEDS: CEFTRIAXONE 1 G in NS 100 ML IV SCH (20:03)
[2017-11-20] MEDS: NITROGLYCERIN PATCH REMOVAL TD SCH (21:00)
[2017-11-20] MEDS: MORPHINE SULFATE 2mg INJECTION IVP PRN (22:56)
[2017-11-21] MEDS: FUROSEMIDE 40 MG/4 ML INJECTION IVP SCH ×3 (04:30→14:48)
[2017-11-21 07:45] VITALS: RESP 20; TEMP 98.5; O2SAT 93
[2017-11-21] MEDS: LACTOBACILLUS (15B cfu) CAPSULE PO SCH ×2 (07:49→11:43)
[2017-11-21] MEDS: BISACODYL 10 MG SUPPOSITORY RECTALLY SCH (08:26)
[2017-11-21] MEDS: ASPIRIN 325 MG TABLET PO SCH (08:26)
[2017-11-21] MEDS: BRIMONIDINE 0.2% EYE DROPS 5ml EACH EYE SCH (08:26)
[2017-11-21] MEDS: BRINZOLAMIDE 1% EACH EYE SCH (08:27)
[2017-11-21] MEDS: EYE EACH EYE SCH (08:27)
[2017-11-21 09:42] VITALS: BP 154/72; PULSE 81
[2017-11-21] MEDS: NITROGLYCERIN 0.2 MG/HR PATCH TD SCH (09:54)
[2017-11-21] MEDS: ENOXAPARIN 40 MG/0.4 ML INJECTION SQ SCH (09:54)
--- NOTE | 2017-11-21 12:31 | Discharge Summary ---
Discharge Information Date of admission: 11/13/17 01:59 Anticipated date of discharge: 11/21/17 Attending Physician: Antonio Samaniego MD Primary care physician: Reddy Lee MD Consults: Consulting Provider: Candace Srinivasan Reason For Exam: Progressive Parkinson's Septic shock secondary to cellulitis - resolved Manifestations: Tachycardia, Leukopenia, Lactate 4.1 Cellulitis of RLE Severe chronic lower extremity edema with blister formation Chronic LE venous insufficiency Functional decline at home Back pain with recent fall Parkinson's disease CAD CHF by history HTN Gallstones Obesity with BMI 36.2 Dysphagia Encephalopathy Acute hypoxic respiratory failure - resolved - Procedures Procedures: Date of Exam: 11/14/17 Type of Exam(s): US echo doppler complete This is a two-dimensional echo with spectral Doppler, color-flow and M-mode. It was obtained in a patient with congestive heart failure. Left atrial dimension is normal. Left ventricle end-diastolic dimension is normal. Left ventricle wall thickness is at the upper limits of normal. LV systolic function is normal with ejection fraction of about 55%. Right atrium is normal. Right ventricle is normal. Aortic root dimension is normal. Mitral valve is morphologically normal with trace of mitral regurgitation. Aortic valve is a trileaflet structure with no stenosis. Mild aortic insufficiency is present. Tricuspid valve shows mild tricuspid regurgitation with normal estimated pulmonary artery systolic pressure of 26. Pulmonary valve shows no pulmonary insufficiency. There is no pericardial effusion. IMPRESSION 1. Normal LV systolic function with ejection fraction of 55%. 2. Trace of mitral regurgitation. 3. Mild aortic insufficiency. 4. Mild tricuspid regurgitation with normal estimated pulmonary artery systolic pressure of 26. = = = = = = = = = = = = = = = = = = = = = = = = = = = = = = = = = = = = = = = = = = = = = = = = = = = = = = = = = = = Date of Exam: 11/12/17 PROCEDURE: US venous doppler LE RT: Findings: There is no evidence for acute deep venous thrombosis in the right thigh. Specifically, serial graded compression was performed from the inguinal ligament to the popliteal bifurcation, on the right thigh, demonstrating appropriate compressibility of the deep venous system. In addition, color and pulsed Doppler demonstrate appropriate spontaneous flow, variation with respiration, and augmentation with calf compression. At the ankle, normal flow is identified in the posterior tibial veins; these vessels are also normal in caliber. Impression: No evidence of acute DVT in the right lower limb. - Laboratory Labs: 11/20/17 04:25 11/20/17 04:25 - Microbiology Microbiology 11/14/17 11:16 Sputum, Expectorated Gram Stain - Final 11/14/17 11:16 Sputum, Expectorated Sputum Culture - Final Normal Oral Gloria - Radiology Radiology: Date of Exam: 11/12/17 PROCEDURE: CT abdomen pelvis w con: Findings: Atelectasis in the lower lobes. Mild motion artifact. Liver is unremarkable. Small gallstones within the mildly distended gallbladder. The spleen, pancreas and adrenal glands are grossly normal. Right kidney is normal. Nonobstructing lower pole left renal stones. No abdominal lymphadenopathy. Bladder is grossly normal. Moderate stool in the rectum. There is herniation of the proximal sigmoid colon partially into a left inguinal hernia without evidence of acute colonic obstruction. Small bowel is normal in caliber. Bone windows show degenerative change and scoliosis in the spine. Enlarged right inguinal lymph nodes measuring up to 1.6 cm in short axis could be reactive. Impression: No acute disease process seen. 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 = = = = = = = = = = = = = = = = = = = = = = = = = = = = = = = = = = = = = = = = = = = = = = = = = = = = = = = = = = = Date of Exam: 11/12/17 PROCEDURE: CT angio pulm emboli: Findings: Pulmonary arteries: Contrast bolus is suboptimal and borderline nondiagnostic. No large or central pulmonary embolus. Other findings: No pneumonia, pleural effusion or pneumothorax. Scarring or atelectasis in the left lower lobe. The remaining lung gasca are clear. Central airways are patent. No axillary or mediastinal adenopathy. Heart is mildly enlarged. No pericardial effusion. Impression: Limited exam with no large or central pulmonary embolus. = = = = = = = = = = = = = = = = = = = = = = = = = = = = = = = = = = = = = = = = = = = = = = = = = = = = = = = = = = = Date of Exam: 11/12/17 PROCEDURE: XR chest 1V: FINDINGS: The lungs are clear. There is no abnormal airspace opacity, pleural effusion or pneumothorax identified. The heart size, pulmonary vasculature and mediastinum are within normal limits. IMPRESSION: No acute cardiopulmonary abnormality. = = = = = = = = = = = = = = = = = = = = = = = = = = = = = = = = = = = = = = = = = = = = = = = = = = = = = = = = = = = Date of Exam: 11/12/17 PROCEDURE: XR abdomen 1V: Findings: The visualized lung bases are clear. There is no free air on the upright view. The bowel gas pattern is nonobstructive and nonspecific. The pelvis is excluded from the [id number]. Moderate stool in the visualized colon. Degenerative change and scoliosis in the spine. Impression: Nonobstructive nonspecific bowel gas pattern. = = = = = = = = = = = = = = = = = = = = = = = = = = = = = = = = = = = = = = = = = = = = = = = = = = = = = = = = = = = Date of Exam: 11/14/17 PROCEDURE: XR chest 1V: Findings: Stable mild interstitial prominence with slight increase in right infrahilar airspace opacity. No pneumothorax or effusion. Heart size and mediastinal contours are stable. Pulmonary vascularity is stable. Impression: Subtle right infrahilar airspace disease may represent atelectasis. = = = = = = = = = = = = = = = = = = = = = = = = = = = = = = = = = = = = = = = = = = = = = = = = = = = = = = = = = = = Date of Exam: 11/16/17 PROCEDURE: XR chest 1V: Impression: No change. = = = = = = = = = = = = = = = = = = = = = = = = = = = = = = = = = = = = = = = = = = = = = = = = = = = = = = = = = = = Date of Exam: 11/16/17 PROCEDURE: XR KUB: Findings: The visualized lung bases are clear. There is no free air on the upright view. The bowel gas pattern is nonobstructive. Gas is seen in nondilated small and large bowel to the level of the rectum. Moderate stool is seen throughout the colon. Impression: No evidence of acute obstruction. Diffuse gas throughout small and large bowel may represent ileus. History of Present Illness HPI: Mr. Riggs is an 87 y/o male who lives independently presents to [facility] ED secondary to N/V and increasing leg pain. Has been having chronic swelling of legs due to veinous insufficiency-typically wear compression stocking. About 1 month ago had right great toenail trimmed and toenail inadvertently removed. Significant bleeding at that time and has been having redness of toe and leg since. Treated with antibiotics. hospitalized recently. While in visiting her, he lost balance going to bathroom (when to use door jam for assistance as he does at home, but jam in hospital slick and not supportive) did fall with trauma to back. Family notes steady decline at home for the past 1-2 weeks (His normal day would be to get up for breakfast, do devotions, and then sleep in chair until lunch when he would get up for lunch, then going back to sleep in chair) - prior was using a cane for assistance but now is requiring 2 person assistance to get up. finally able to return home on 11/12. Family member has made arrangements for for PT to help patient. Developed n/v (diarrhea reported by ED staff). Also having increasing leg pain, right leg more than left. Both legs very swollen, but right more so and much more painful and warm to touch. ED visit ensued. D-Dimer elevated. WBC decreased at 2.8. No evidence for DVT or PE. HR elevated. With concern for sepsis syndrome due to RLE cellulitis, patient placed in inpatient admission at [facility]. Anticipated length of stay thought to be greater than 2 midnights. Objective Vital signs: Temperature 98.5 F 11/21/17 07:37 Pulse Rate 81 11/21/17 09:38 Respiratory Rate 20 11/21/17 07:37 Blood Pressure 154/72 H 11/21/17 09:38 Pulse Oximetry 93 11/21/17 07:37 Height/Weight/BMI: Height 1.75 m Weight 104.4 kg Body Mass Index 36.2 - Constitutional Present: no acute distress, well nourished, well developed - Routine HEENT Exam Head: Present: normocephalic - Routine Respiratory Exam Present: decreased breath sounds - Routine Cardiovascular Exam Present: RRR, S1, S2 - Routine Abdominal Exam Present: soft, normoactive bowel sounds, non distended, non tender - Routine Extremities Exam Present: edema (BLE, R>L) - Routine Skin Exam Present: erythema (BLE), wounds (BLE - xeroform/dressings intact; abrasions noted to dorsal aspects of toes) - Routine Neurological Exam Absent: alert, oriented X3 - Routine Psychiatric Exam Present: unable to assess Hospital Course This is a general summary of the patient's hospital course. For more details refer to the complete medical record. Hospital course: Mr. Riggs was admitted on 11/13/17 for septic shock secondary to right lower extremity cellulitis. Lactate peaked at 4.31, and pro-calcitonin was also elevated at 16.7. He was started on vancomycin and Rocephin, which were continued for 8 days. He received a full fluid bolus for septic shock. Initially , his Lasix was held, but on the second hospital day, he was started on routine IV Lasix. Diuretic associated hypokalemia was corrected. While he was requiring 2-3L of oxygen initially, he was weaned to room air by November 18. With antibiotics , his white count improved from 2.8 on admission to 8.7 by day discharge. CRP trended down from 178 to 54. On 11/16/17, gaseous distention was noted and he was given Dulcolax suppository in effort to relieve some distention. He was already having bowel movements. PT, OT and speech were consulted, as well as Dr. Srinivasan for advanced Parkinson's, and he recommended continuing Sinemet and PT. Multiple repeated discussions were held regarding goals of care, as Mr. Riggs failed to show functional improvement and actually developed worsening encephalopathy with aggressive behaviors at times. In moments of lucidity, the patient was able to communicate to his family that he did not wish further medical treatment and was ready to . Additionally, his oral intake suffered and he was unable to safely swallow without risk of aspirating. Ultimately, family opted for [facility] which will be provided while he's at [facility]. He was discharged on 11/21/17 with hospice services. Home medications were continued at time of discharge and may be withdrawn at the discretion of hospice. Prescriptions for morphine oral liquid and Ativan were also provided at time of discharge to help with pain/anxiety/air hunger. Dr. Lee was updated on the discharge plans. Time spent with patient: discharge greater than 30 minutes Resuscitation Status: Do Not Resuscitate Discharge Plan - Discharge Disposition Discharge Date: 11/21/17 Disposition: 04 To [facility] Home/Facility *Condition: Stable Reason For Visit (Visit label in EMR): cellulitis - Discharge Medications *Discharge Medications: New Acetaminophen Supp [Tylenol] 650 mg AK Q5H PRN suppositor PRN Reason: Pain LORazepam [Ativan] 0.5 mg PO Q4H PRN #20 tab PRN Reason: Air Hunger/Anxiety Morphine Sulfate Oral Liq [Roxanol Oral Liq] 10 - 20 mg PO Q2H PRN #10 syringe PRN Reason: Agitation/Air Hunger/Pain Continue Furosemide [Lasix 20 mg Tab] 1 tab PO BID Calcium Carbonate 2 tab PO DAILY Carbidopa/Levodopa [Sinemet Cr 50-200 Tablet] 1 tab PO BID Aspirin 1 tab PO DAILY PEG 3350 17gm PACKET [Miralax] 17 gm PO QAM [place]-3/Dha/Epa/Fish Oil [Fish Oil 1,000 mg Softgel] 2 cap PO BID multivitamin tablet 1 tab PO QAM brinzolamide 1 %-brimonidine 0.2 % eye drops,suspension 1 drop EACH EYE BID ml Triderm (Triamcinolone acetonide 0.1 %) topical cream 1 applicatio TOP BID PRN PRN Reason: rash cholecalciferol (vitamin D3) 2,000 unit capsule 2,000 unit PO DAILY cap Toprol XL metoprolol succinate ER 25 mg tablet,extended release 24 hr 25 mg PO BID #180 tab nitroglycerin 0.2 mg/hr transdermal 24 hour patch 1 patch TD DAILY 90 Days # 90 each Mapap Extra Strength 500 mg tablet 1,000 mg PO TID PRN tab PRN Reason: Pain Nitrostat (nitroglycerin) 0.4 mg sublingual tablet 0.4 mg SL Q5M PRN #7 tab PRN Reason: chest pain Crestor (rosuvastatin) 5 mg tablet 5 mg PO EVERY OTHER DAY - HS #45 tab No Action travoprost (benzalkonium) 0.004 % eye drops See Label Instructions OP .COMPLEX - Discharge Packet/Instructions *Diet: Food/drink per request. Monitor for aspiration. *Activity: Up to chair as able. Stand as able with assist. *Pain Management/Treatment: Morphine, Ativan, Tylenol *Wound Care: To bilateral medial buttocks: Apply barrier cream to denuded areas , cover with Mepilex, change q 3 days and PRN, off load with regular repositioning. To bilateral lower legs: Apply double layer xeroform to blisters , cover with ABD pads. Apply stretch gauze from toes to knees to provide light compression, elevate legs PRN. Change q 3 days. To R great toe: continue to monitor, if opens up apply Aquacel Ag, cover with Mepilex, change q 3 days. *Expected Signs/Symptoms: Weakness, lethargy, confusion. *Notify Physician if: Poor symptom control such as uncontrolled pain, anxiety, shortness of breath, nausea/vomiting, hallucinations, etc. *During Business Hours Contact: Contact the RN on duty. Contact Dr. Lee's office. *After Business Hours Contact: The on-call provider at Dr. Lee's office. *Pending Lab/Results: No Pending Lab - Referrals/Follow Up *Referrals/Follow Up: Reddy Lee MD [Primary Care Provider] - 1 Week - Patient Handouts Patient Handouts: Cellulitis (GEN) - Dismissal Complete Discharge Instructions are:: Complete Physician Narrative - Narrative Physician: Antonio Samaniego Attestation Narrative: Date: 11/21/17 Time: 1228 I have independently interviewed and examined patient. Patient chart reviewed. Case discussed with my HOPPER FILLER. Care plan developed with my supervision, agree with above. An 87-year-old male patient with previous history of advanced Parkinson's disease with worsening dementia, episodes of agitation, aggressive behavior, history of coronary artery disease, hypertension, CHF, dysphagia, admitted to the hospital with initially admitted with septic shock, right lower extremity cellulitis, significant pedal edema with chronic venous insufficiency. Patient unfortunately had deteriorating mental status, poor appetite, agitated and aggressive behavior with functional decline and worsening dementia during hospital course. Case discussed on multiple occasions with the patient and daughter at bedside. Patient's family opted for discharge to [facility] under hospice care.
--- NOTE | 2017-11-21 13:18 | Extended Care Facility Orders ---
<Stephany Rodriguez - Last Filed: 11/21/17 13:17> Admission Orders Admit to:: ICF, Hospice Allergies/Adverse Reactions: Allergies No Known Drug Allergies Allergy (Unknown, Verified 10/22/17 17:17) Admitting Diagnosis: cellulitis Admitting Physician: Antonio Samaniego MD Attending Physician: Antonio Samaniego MD Code Status: Do Not Resuscitate Anticiapted Length of Stay: 30 days or less Rehab Potential: poor Rehab Prognosis: poor Diet: Regular Diet Fluid Consistency: Regular Food Consistency: PUREE Other Diet Modifiers: 6 SMALL Comment: Please feed when upright & alert, small sips/bites Wound/Incision Care: *To bilateral medial buttocks: Apply barrier cream to denuded areas, cover with Mepilex, change q 3 days and PRN, off load with regular repositioning. *To bilateral lower legs: Apply double layer xeroform to blisters, cover with ABD pads. Apply stretch gauze from toes to knees to provide light compression, elevate legs PRN. Change q 3 days. *To R great toe: continue to monitor, if opens up apply Aquacel Ag, cover with Mepilex, change q 3 days. May use Facility Protocol or Standing Orders: Yes May have flu vaccine: Yes Evaluations/Treatment: as needed Long-Term Certification: I certify that SNF services are required to be given on an Inpatient basis because of the patient's need for longterm care on a continuing basis for the condition(s) for which he received inpatient hospital services prior to his transfer to the SNF. SNF inpatient care is necessary for the following reasons Indication for Long-Term: Not Applicable - Additional Information In Event of Arrest: Do Not Start CPR Resident is Aware of Diagnosis: Yes Referrals: Reddy Lee MD [Primary Care Provider] - 1 Week Additional Orders: Routine [facility] care <Antonio Samaniego - Last Filed: 11/21/17 19:35> Admission Orders Admitting Diagnosis: cellulitis Admitting Physician: Antonio Samanigeo MD Attending Physician: Antonio Samaniego MD Code Status: Do Not Resuscitate Long-Term Certification: I certify that SNF services are required to be given on an Inpatient basis because of the patients need for longterm care on a continuing basis for the condition(s) for which he/she received inpatient hospital services prior to his/her transfer to the SNF. SNF inpatient care is necessary for the following reasons
[2017-11-21] MEDS: MORPHINE SULFATE 2mg INJECTION IVP PRN (14:22)
== END 2017-11-21 15:55 | disposition hospice, home (50) | DRG 871 ==
LOC: ED 21:02 → MED 11-13 01:45 → SUATTDRO 11-13 01:59 → EDHOLD 11-13 01:59 → MED 11-13 02:00
PROVIDERS: ADMIT Internal Medicine; ATTEND Internal Medicine